=== PATIENT | male | born 1940 | race Caucasian/White ===

== ENCOUNTER 2017-09-24 06:14 | Observation (INO) | payer MEDICARE, OTHER ==
[2017-09-24] MEDS ORDERED: Sodium Chloride 0.9% 10 ML Syringe FLUSH PRN (06:59)
[2017-09-24] MEDS ORDERED: Sodium Chloride 0.9% 2.5 ML Syringe FLUSH PRN (06:59)
--- NOTE | 2017-09-24 07:05 | EDM.PDOC ---
ED HPI GENERAL MEDICAL PROBLEM - General Chief Complaint: Gastrointestinal Problem Stated Complaint: BOWEL PROBLEMS Time Seen by Provider: 09/24/17 06:59 - History of Present Illness INITIAL COMMENTS - FREE TEXT/NARRATIVE: HISTORY AND PHYSICAL: History of present illness: Patient's a 77-year-old white male who presents with a concern of rectal bleeding. 3 episodes that were painless this morning that started at 4 AM he has had smaller episodes in the past with painless hemorrhoids she does not feel that this is similar to that event. There's been no fever chills chest pain shortness breath or other complaints she is not on aspirin or anticoagulants Review of systems: As per history of present illness and below otherwise all systems reviewed and negative. Past medical history: As per history of present illness and as reviewed below otherwise noncontributory. Surgical history: As per history of present illness and as reviewed below otherwise noncontributory. Social history: No reported history of drug or alcohol abuse. Family history: As per history of present illness and as reviewed below otherwise noncontributory. Physical exam: HEENT: Atraumatic, normocephalic, pupils reactive, negative for conjunctival pallor or scleral icterus, mucous membranes moist, throat clear, neck supple, nontender, trachea midline. Lungs: Clear to auscultation, breath sounds equal bilaterally, chest nontender. Heart: S1S2, regular, negative for clicks, rubs, or JVD. Abdomen: Soft, nondistended, nontender. Negative for masses or hepatosplenomegaly. Negative for costovertebral tenderness. Pelvis: Stable nontender. Genitourinary: Deferred. Rectal: Deferred. Extremities: Atraumatic, negative for cords or calf pain. Neurovascular unremarkable. Neuro: Awake, alert, oriented. Cranial nerves II through XII unremarkable. Cerebellum unremarkable. Motor and sensory unremarkable throughout. Exam nonfocal. Diagnostics: CBC CMP UA PT/INR CT abdomen and pelvis Therapeutics: Saline lock Impression: #1 rectal bleeding Definitive disposition and diagnosis as appropriate pending reevaluation and review of above. - Related Data Allergies Allergy/AdvReac Type Severity Reaction Status Date / Time No Known Allergies Allergy Verified 09/24/17 06:42 Home Meds: Home Meds Famotidine 1 tab PO BEDTIME 09/24/17 [History] Fish Oil/[place]-3 Fatty Acids [Fish Oil] 1 tab PO DAILY 09/24/17 [History] Hydrochlorothiazide 1 tab PO DAILY 09/24/17 [History] Metoprolol Succinate [Toprol XL 50mg] 1 tab PO BID 09/24/17 [History] Past Medical History HEENT History: Reports: Impaired Vision, Other (See Below) Other HEENT History: wears glasses Cardiovascular History: Reports: Hypertension Social & Family History - Family History Family Medical History: Noncontributory - Tobacco Use Smoking Status *Q: Never Smoker - Recreational Drug Use Recreational Drug Use: No ED ROS GENERAL - Review of Systems Review Of Systems: ROS reveals no pertinent complaints other than HPI. ED EXAM, GENERAL - Physical Exam Exam: See Below (See dictation) Course - Vital Signs Last Recorded V/S: Last Vital Signs Temp 36.1 C 09/24/17 06:35 Pulse 79 09/24/17 09:00 Resp 20 09/24/17 09:00 BP 126/81 09/24/17 09:00 Pulse Ox 93 L 09/24/17 09:00 - Orders/Labs/Meds Orders: Active Orders 24 hr Category Date Time Status EKG Documentation Completion [RC] STAT Care 09/24/17 06:59 Active Abdomen Pelvis wo Cont [CT] Stat Exams 09/24/17 06:59 Taken UA W/MICROSCOPIC [URIN] Stat Lab 09/24/17 07:40 Ordered Sodium Chloride 0.9% [Saline Flush] Med 09/24/17 06:59 Active 10 ml FLUSH ASDIRECTED PRN Sodium Chloride 0.9% [Saline Flush] Med 09/24/17 06:59 Active 2.5 ml FLUSH ASDIRECTED PRN Saline Lock Insert [OM.PC] Stat Oth 09/24/17 06:59 Ordered Medication Orders Sodium Chloride (Saline Flush) 10 ml FLUSH ASDIRECTED PRN PRN Reason: Keep Vein Open Last Admin: 09/24/17 09:08 Dose: 10 ml Sodium Chloride (Saline Flush) 2.5 ml FLUSH ASDIRECTED PRN PRN Reason: Keep Vein Open Last Admin: 09/24/17 09:08 Dose: 2.5 ml Labs: Laboratory Tests 09/24/17 09/24/17 09/24/17 Range/Units 07:00 07:00 07:00 WBC 7.42 (4.0-11.0) K/uL RBC 4.87 (4.50-5.90) M/uL Hgb 15.7 (13.0-17.0) g/dL Hct 46.5 (38.0-50.0) % MCV 95.5 (80.0-98.0) fL MCH 32.2 H (27.0-32.0) pg MCHC 33.8 (31.0-37.0) g/dL RDW Std Deviation 52.3 (28.0-62.0) fl RDW Coeff of Mary 15 (11.0-15.0) % Plt Count 134 L (150-400) K/uL MPV 9.10 (7.40-12.00) fL Neut % (Auto) 69.2 (48.0-80.0) % Lymph % (Auto) 18.9 (16.0-40.0) % Charlton % (Auto) 10.2 (0.0-15.0) % Eos % (Auto) 1.3 (0.0-7.0) % Baso % (Auto) 0.4 (0.0-1.5) % Neut # (Auto) 5.1 (1.4-5.7) K/uL Lymph # (Auto) 1.4 (0.6-2.4) K/uL Charlton # (Auto) 0.8 (0.0-0.8) K/uL Eos # (Auto) 0.1 (0.0-0.7) K/uL Baso # (Auto) 0.0 (0.0-0.1) K/uL Nucleated RBC % 0.0 /100WBC Nucleated RBCs # 0 K/uL INR 1.08 Sodium 140 (136-148) mmol/L Potassium 4.0 (3.5-5.1) mmol/L Chloride 106 (98-107) mmol/L Carbon Dioxide 25.2 (21.0-32.0) mmol/L BUN 25 H (7.0-18.0) mg/dL Creatinine 1.6 H (0.8-1.3) mg/dL Est Cr Clr Drug Dosing 41.09 mL/min Estimated GFR (MDRD) 41.9 ml/min Glucose 134 H (74-106) mg/dL Calcium 9.1 (8.5-10.1) mg/dL Total Bilirubin 0.5 (0.2-1.0) mg/dL AST 28 (15-37) IU/L ALT 26 (14-63) IU/L Alkaline Phosphatase 54 (46-116) U/L Total Protein 7.7 (6.4-8.2) g/dL Albumin 3.8 (3.4-5.0) g/dL Globulin 3.9 H (2.0-3.5) g/dL Albumin/Globulin Ratio 1.0 L (1.3-2.8) Urine Color Urine Appearance Urine pH (5.0-8.0) Ur Specific [place] (1.001-1.035) Urine Protein (NEGATIVE) mg/dL Urine Glucose (UA) (NEGATIVE) mg/dL Urine Ketones (NEGATIVE) mg/dL Urine Occult Blood (NEGATIVE) Urine Nitrite (NEGATIVE) Urine Bilirubin (NEGATIVE) Urine Urobilinogen (<2.0) EU/dL Ur Leukocyte Esterase (NEGATIVE) Urine RBC (0-2/HPF) Urine WBC (0-5/HPF) Ur Epithelial Cells (NONE-FEW) Amorphous Sediment (NEGATIVE) Urine Bacteria (NEGATIVE) 09/24/17 Range/Units 07:40 WBC (4.0-11.0) K/uL RBC (4.50-5.90) M/uL Hgb (13.0-17.0) g/dL Hct (38.0-50.0) % MCV (80.0-98.0) fL MCH (27.0-32.0) pg MCHC (31.0-37.0) g/dL RDW Std Deviation (28.0-62.0) fl RDW Coeff of Mary (11.0-15.0) % Plt Count (150-400) K/uL MPV (7.40-12.00) fL Neut % (Auto) (48.0-80.0) % Lymph % (Auto) (16.0-40.0) % Charl[place] % (Auto) (0.0-15.0) % Eos % (Auto) (0.0-7.0) % Baso % (Auto) (0.0-1.5) % Neut # (Auto) (1.4-5.7) K/uL Lymph # (Auto) (0.6-2.4) K/uL [place] # (Auto) (0.0-0.8) K/uL Eos # (Auto) (0.0-0.7) K/uL Baso # (Auto) (0.0-0.1) K/uL Nucleated RBC % /100WBC Nucleated RBCs # K/uL INR Sodium (136-148) mmol/L Potassium (3.5-5.1) mmol/L Chloride (98-107) mmol/L Carbon Dioxide (21.0-32.0) mmol/L BUN (7.0-18.0) mg/dL Creatinine (0.8-1.3) mg/dL Est Cr Clr Drug Dosing mL/min Estimated GFR (MDRD) ml/min Glucose (74-106) mg/dL Calcium (8.5-10.1) mg/dL Total Bilirubin (0.2-1.0) mg/dL AST (15-37) IU/L ALT (14-63) IU/L Alkaline Phosphatase (46-116) U/L Total Protein (6.4-8.2) g/dL Albumin (3.4-5.0) g/dL Globulin (2.0-3.5) g/dL Albumin/Globulin Ratio (1.3-2.8) Urine Color YELLOW Urine Appearance CLEAR Urine pH 5.5 (5.0-8.0) Ur Specific [place] 1.020 (1.001-1.035) Urine Protein NEGATIVE (NEGATIVE) mg/dL Urine Glucose (UA) NEGATIVE (NEGATIVE) mg/dL Urine Ketones NEGATIVE (NEGATIVE) mg/dL Urine Occult Blood TRACE-INTACT (NEGATIVE) Urine Nitrite NEGATIVE (NEGATIVE) Urine Bilirubin NEGATIVE (NEGATIVE) Urine Urobilinogen 0.2 (<2.0) EU/dL Ur Leukocyte Esterase NEGATIVE (NEGATIVE) Urine RBC NONE SEEN (0-2/HPF) Urine WBC 0-1 (0-5/HPF) Ur Epithelial Cells RARE (NONE-FEW) Amorphous Sediment RARE (NEGATIVE) Urine Bacteria RARE (NEGATIVE) Meds: Medications Generic Name Dose Route Start Last Admin Trade Name Freq PRN Reason Stop Dose Admin Sodium Chloride 10 ml 09/24/17 06:59 09/24/17 09:08 Saline Flush FLUSH 10 ml ASDIRECTED PRN Administration Keep Vein Open Sodium Chloride 2.5 ml 09/24/17 06:59 09/24/17 09:08 Saline Flush FLUSH 2.5 ml ASDIRECTED PRN Administration Keep Vein Open Discontinued Medications Generic Name Dose Route Start Last Admin Trade Name Fernando PRN Reason Stop Dose Admin Pantoprazole Sodium 40 mg 09/24/17 08:54 09/24/17 09:08 Protonix Iv IVPUSH 09/24/17 08:55 40 mg NOW ONE Administration Departure - Departure Time of Disposition: 09:13 Disposition: Refer to Observation Condition: Good Clinical Impression: Diverticulosis - Discharge Information Referrals: Luis Ochoa MD [Primary Care Provider] - Forms: ED Department Discharge - My Orders Last 24 Hours: My Active Orders 09/24/17 06:59 EKG Documentation Completion [RC] STAT Abdomen Pelvis wo Cont [CT] Stat Sodium Chloride 0.9% [Saline Flush] 10 ml FLUSH ASDIRECTED PRN Sodium Chloride 0.9% [Saline Flush] 2.5 ml FLUSH ASDIRECTED PRN Saline Lock Insert [OM.PC] Stat 09/24/17 07:40 UA W/MICROSCOPIC [URIN] Stat - Assessment/Plan Last 24 Hours: My Active Orders 09/24/17 06:59 EKG Documentation Completion [RC] STAT Abdomen Pelvis wo Cont [CT] Stat Sodium Chloride 0.9% [Saline Flush] 10 ml FLUSH ASDIRECTED PRN Sodium Chloride 0.9% [Saline Flush] 2.5 ml FLUSH ASDIRECTED PRN Saline Lock Insert [OM.PC] Stat 09/24/17 07:40 UA W/MICROSCOPIC [URIN] Stat
[2017-09-24] MEDS ORDERED: Pantoprazole 40 MG Vial IVPUSH ONE (08:54)
[2017-09-24] MEDS ORDERED: Morphine 4 MG/ML Syringe IVPUSH PRN (11:30)
[2017-09-24] MEDS ORDERED: Ondansetron 4 MG/2 ML SDV IVPUSH PRN (11:31)
[2017-09-24] MEDS: Lactated Ringers 1,000 ML IV SCH ×2 (11:59→21:37)
[2017-09-24] MEDS: Ciprofloxacin in D5W 400 MG in Premix Bag 1 BAG IV SCH ×4 (12:00→23:12)
--- NOTE | 2017-09-24 12:58 | PCM.HP ---
H&P History of Present Illness - General Date of Service: 09/24/17 Admit Problem/Dx: Admission Diagnosis/Problem Admission Diagnosis/Problem Diverticulosis of intestine Source of Information: Patient History Limitations: Reports: No Limitations - History of Present Illness Initial Comments - Free Text/Narative: This 77 year old male with pmh of HTN, hypercholesterolemia presented to the ED this with 3 episodes of bloody bowel movements this morning. He reports he woke up around 4 am, which is normal to have a BM. Noticed monae blood in this stool. He then had to have another stool around 4:30 which was monae blood present and then again at 5:00, which was darker in appearance, more maroon. He denied any abdominal pain or rectal pain. He otherwise has been feeling well recently with no abdominal pain, chest pain, SOB or palpitations. He reports some heartburn. He was switched to famotidine for heartburn, from Prilosec. He made this switch a few days ago and has noticed an increase in heartburn. He also reports using Aleve 1-2 times daily for chronic back pain. He reports eating "[place] meat", raw ground beef, that was not fresh a couple days ago, no body else ate the meat but him. He denies bowel habit changes recently. He has had bloody in his stool previously, but not recently and thought it was related to hemorrhoids. He had a colonoscopy 8-[address] Reilly, in which he reports was normal. He has never had an EGD. No family history of colon cancer. He does report his mother had history of diverticulosis, but he prior to this never known he had it. He denies current tobacco use, quit in the 60's, rare alcohol use and no recreational drug use. In the ED no leukocytosis noted, hgb 15.7. BUN 25 and Cr 1.6. UA was negative. Abd/pelvis CT was obtained which revealed "sigmoid diverticulosis. Candy sigmoid fat stranding. The appearance is likely related to mild sigmoid diverticulitis without abscess formation or bowel obstruction. No free air. Scattered diverticula elsewhere within the colon". VS were stable. He was treated with Protonix in the ED. He was admitted observation for sigmoid diverticulitis and rectal bleeding. PCP, Dr Ochoa. - Related Data Allergies/Adverse Reactions: Allergies Allergy/AdvReac Type Severity Reaction Status Date / Time No Known Allergies Allergy Verified 09/24/17 06:42 Home Medications: Home Meds Famotidine 40 mg PO BEDTIME 09/24/17 [History] Fish Oil/[place]-3 Fatty Acids [Fish Oil] 1,200 mg PO DAILY 09/24/17 [History] Fluticasone Propionate 1 puff NS DAILY PRN 09/24/17 [History] Hydrochlorothiazide 12.5 mg PO DAILY 09/24/17 [History] Metoprolol Tartrate 50 mg PO BID 09/24/17 [History] Omeprazole 20 mg PO ACBREAKFAST 09/24/17 [History] Past Medical History HEENT History: Reports: Impaired Vision, Other (See Below) Other HEENT History: wears glasses Cardiovascular History: Reports: High Cholesterol, Hypertension. Denies: Afib, Blood Clots/VTE/DVT, MA Respiratory History: Reports: None. 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 needs to cut meat small and chew food thoroughly) Genitourinary History: Reports: None. Denies: Chronic Renal Insuffiency Musculoskeletal History: Reports: None Neurological History: Reports: None. Denies: CVA, Migraines, TIA Psychiatric History: Reports: None Endocrine/Metabolic History: Denies: Diabetes, Type II Hematologic History: Reports: None Oncologic (Cancer) History: Reports: None - Past Surgical History HEENT Surgical History: Reports: Tonsillectomy (when he was a child) Other Neurological Surgeries/Procedures: Pilio, with mild dysphagia. Social & Family History - Family History GI: Reports: Diverticulosis Oncologic: Denies: Colon - Tobacco Use Smoking Status *Q: Former Smoker Used Tobacco, but Quit: Yes Month/Year Tobacco Last Used: 1964 Second Hand Smoke Exposure: No - Caffeine Use Caffeine Use: Reports: Coffee - Alcohol Use Alcohol Use History: No Alcohol Use Frequency: Socially - Recreational Drug Use Recreational Drug Use: No - Living Situation & Occupation Living situation: Reports: Occupation: Retired H&P Review of Systems - Review of Systems: Review Of Systems: See Below General: Reports: No Symptoms. Denies: Fever, Chills, Malaise, Weakness, Fatigue HEENT: Reports: No Symptoms. Denies: Headaches, Sinus Congestion, Sore Throat, Visual Changes Pulmonary: Reports: No Symptoms. Denies: Shortness of Breath, Cough, Sputum Cardiovascular: Reports: No Symptoms. Denies: Chest Pain, Edema Gastrointestinal: Reports: Black Stool, Bloody Stool, Flatus. Denies: Abdominal Pain, Decreased Appetite, Distension, Hematemesis, Nausea, Vomiting Genitourinary: Reports: No Symptoms. Denies: Dysuria, Frequency, Burning, Pain Musculoskeletal: Reports: No Symptoms. Denies: Neck Pain Skin: Reports: No Symptoms Psychiatric: Reports: No Symptoms Neurological: Reports: No Symptoms Hematologic/Lymphatic: Reports: No Symptoms Immunologic: Reports: No Symptoms Exam - Exam Exam: See Below - Vital Signs Vital Signs: Last Vital Signs Temp 97 F 09/24/17 11:51 Pulse 80 09/24/17 11:51 Resp 18 09/24/17 11:51 BP 132/82 09/24/17 11:51 Pulse Ox 92 L 09/24/17 11:51 Weight: 90 kg - Exam General: Alert, Oriented, Cooperative HEENT: Conjunctiva Clear, Mucosa Moist & [place], Posterior Pharynx Clear, Pupils Reactive Neck: Supple, Trachea Midline, 2 Lungs: Clear to Auscultation, Normal Respiratory Effort Cardiovascular: Regular Rate, Regular Rhythm GI/Abdominal Exam: Normal Bowel Sounds, Soft, Non-Tender, No Organomegaly, No Distention, No Abnormal Bruit, No Mass (Male) Exam: Deferred Rectal (Males) Exam: Normal Exam, Normal Rectal Tone, Bloody Stool, Heme + Stool. No: Hemorrhoids, Mass, Tenderness Back Exam: Normal Inspection, Full Range of Motion, NT Extremities: Normal Inspection, Normal Range of Motion, Non-Tender, No Pedal Edema, Normal Capillary Refill Neurological: Cranial Nerves Intact, Reflexes Equal Bilateral Neuro Extensive - Mental Status: Alert, Oriented x3, Normal Mood/Affect, Normal Cognition Neuro Extensive - Motor, Sensory, Reflexes: CN II-XII Intact, Normal Gait, Normal Reflexes Psychiatric: Alert, Normal Affect, Normal Mood - Patient Data Lab Results Last 24 hrs: Laboratory Results - last 24 hr 09/24/17 09/24/17 09/24/17 Range/Units 07:00 07:00 07:00 WBC 7.42 (4.0-11.0) K/uL RBC 4.87 (4.50-5.90) M/uL Hgb 15.7 (13.0-17.0) g/dL Hct 46.5 (38.0-50.0) % MCV 95.5 (80.0-98.0) fL MCH 32.2 H (27.0-32.0) pg MCHC 33.8 (31.0-37.0) g/dL RDW Std Deviation 52.3 (28.0-62.0) fl RDW Coeff of Mary 15 (11.0-15.0) % Plt Count 134 L (150-400) K/uL MPV 9.10 (7.40-12.00) fL Neut % (Auto) 69.2 (48.0-80.0) % Lymph % (Auto) 18.9 (16.0-40.0) % [place] % (Auto) 10.2 (0.0-15.0) % Eos % (Auto) 1.3 (0.0-7.0) % Baso % (Auto) 0.4 (0.0-1.5) % Neut # (Auto) 5.1 (1.4-5.7) K/uL Lymph # (Auto) 1.4 (0.6-2.4) K/uL [place] # (Auto) 0.8 (0.0-0.8) K/uL Eos # (Auto) 0.1 (0.0-0.7) K/uL Baso # (Auto) 0.0 (0.0-0.1) K/uL Nucleated RBC % 0.0 /100WBC Nucleated RBCs # 0 K/uL INR 1.08 Sodium 140 (136-148) mmol/L Potassium 4.0 (3.5-5.1) mmol/L Chloride 106 (98-107) mmol/L Carbon Dioxide 25.2 (21.0-32.0) mmol/L BUN 25 H (7.0-18.0) mg/dL Creatinine 1.6 H (0.8-1.3) mg/dL Est Cr Clr Drug Dosing 41.09 mL/min Estimated GFR (MDRD) 41.9 ml/min Glucose 134 H (74-106) mg/dL Calcium 9.1 (8.5-10.1) mg/dL Total Bilirubin 0.5 (0.2-1.0) mg/dL AST 28 (15-37) IU/L ALT 26 (14-63) IU/L Alkaline Phosphatase 54 (46-116) U/L Total Protein 7.7 (6.4-8.2) g/dL Albumin 3.8 (3.4-5.0) g/dL Globulin 3.9 H (2.0-3.5) g/dL Albumin/Globulin Ratio 1.0 L (1.3-2.8) Urine Color Urine Appearance Urine pH (5.0-8.0) Ur Specific [place] (1.001-1.035) Urine Protein (NEGATIVE) mg/dL Urine Glucose (UA) (NEGATIVE) mg/dL Urine Ketones (NEGATIVE) mg/dL Urine Occult Blood (NEGATIVE) Urine Nitrite (NEGATIVE) Urine Bilirubin (NEGATIVE) Urine Urobilinogen (<2.0) EU/dL Ur Leukocyte Esterase (NEGATIVE) Urine RBC (0-2/HPF) Urine WBC (0-5/HPF) Ur Epithelial Cells (NONE-FEW) Amorphous Sediment (NEGATIVE) Urine Bacteria (NEGATIVE) 09/24/17 Range/Units 07:40 WBC (4.0-11.0) K/uL RBC (4.50-5.90) M/uL Hgb (13.0-17.0) g/dL Hct (38.0-50.0) % MCV (80.0-98.0) fL MCH (27.0-32.0) pg MCHC (31.0-37.0) g/dL RDW Std Deviation (28.0-62.0) fl RDW Coeff of Mary (11.0-15.0) % Plt Count (150-400) K/uL MPV (7.40-12.00) fL Neut % (Auto) (48.0-80.0) % Lymph % (Auto) (16.0-40.0) % [place] % (Auto) (0.0-15.0) % Eos % (Auto) (0.0-7.0) % Baso % (Auto) (0.0-1.5) % Neut # (Auto) (1.4-5.7) K/uL Lymph # (Auto) (0.6-2.4) K/uL [place] # (Auto) (0.0-0.8) K/uL Eos # (Auto) (0.0-0.7) K/uL Baso # (Auto) (0.0-0.1) K/uL Nucleated RBC % /100WBC Nucleated RBCs # K/uL INR Sodium (136-148) mmol/L Potassium (3.5-5.1) mmol/L Chloride (98-107) mmol/L Carbon Dioxide (21.0-32.0) mmol/L BUN (7.0-18.0) mg/dL Creatinine (0.8-1.3) mg/dL Est Cr Clr Drug Dosing mL/min Estimated GFR (MDRD) ml/min Glucose (74-106) mg/dL Calcium (8.5-10.1) mg/dL Total Bilirubin (0.2-1.0) mg/dL AST (15-37) IU/L ALT (14-63) IU/L Alkaline Phosphatase (46-116) U/L Total Protein (6.4-8.2) g/dL Albumin (3.4-5.0) g/dL Globulin (2.0-3.5) g/dL Albumin/Globulin Ratio (1.3-2.8) Urine Color YELLOW Urine Appearance CLEAR Urine pH 5.5 (5.0-8.0) Ur Specific [place] 1.020 (1.001-1.035) Urine Protein NEGATIVE (NEGATIVE) mg/dL Urine Glucose (UA) NEGATIVE (NEGATIVE) mg/dL Urine Ketones NEGATIVE (NEGATIVE) mg/dL Urine Occult Blood TRACE-INTACT (NEGATIVE) Urine Nitrite NEGATIVE (NEGATIVE) Urine Bilirubin NEGATIVE (NEGATIVE) Urine Urobilinogen 0.2 (<2.0) EU/dL Ur Leukocyte Esterase NEGATIVE (NEGATIVE) Urine RBC NONE SEEN (0-2/HPF) Urine WBC 0-1 (0-5/HPF) Ur Epithelial Cells RARE (NONE-FEW) Amorphous Sediment RARE (NEGATIVE) Urine Bacteria RARE (NEGATIVE) Result Diagrams: 09/24/17 07:00 09/24/17 07:00 *Q Meaningful Use (ADM) - VTE *Q VTE Pharmacological Contraindications *Q: Risk of Bleeding - Problem List (1) Sigmoid diverticulitis SNOMED Code(s): 502467953 ICD Code: K57.32 - DVTRCLI OF LG INT W/O PERFORATION OR ABSCESS W/O BLEEDING Status: Acute Current Visit: Yes (2) Rectal bleeding SNOMED Code(s): 71729016 ICD Code: K62.5 - HEMORRHAGE OF ANUS AND RECTUM Status: Acute Current Visit: Yes (3) Upper GI bleeding SNOMED Code(s): 50100864 ICD Code: K92.2 - GASTROINTESTINAL HEMORRHAGE, UNSPECIFIED Status: Suspected Current Visit: Yes (4) HTN (hypertension) SNOMED Code(s): 79514053 ICD Code: I10 - ESSENTIAL (PRIMARY) HYPERTENSION Status: Chronic Current Visit: Yes Qualifiers: Hypertension type: essential hypertension Qualified Code(s): I10 - Essential (primary) hypertension (5) Hypercholesteremia SNOMED Code(s): 59443353 ICD Code: E78.00 - PURE HYPERCHOLESTEROLEMIA, UNSPECIFIED Status: Chronic Current Visit: Yes (6) GERD (gastroesophageal reflux disease) SNOMED Code(s): 324946989 ICD Code: K21.9 - GASTRO-ESOPHAGEAL REFLUX DISEASE WITHOUT ESOPHAGITIS Status: Chronic Current Visit: Yes Qualifiers: Esophagitis presence: esophagitis presence not specified Qualified Code(s) : K21.9 - Gastro-esophageal reflux disease without esophagitis (7) History of poliomyelitis SNOMED Code(s): 734519549 ICD Code: Z86.12 - PERSONAL HISTORY OF POLIOMYELITIS Status: Chronic Current Visit: Yes Problem List Initiated/Reviewed/Updated: Yes Orders Last 24hrs: Active Orders 24 hr Category Date Time Status Patient Status [ADT] Stat ADT 09/24/17 09:14 Active Fecal Occult Blood Collection [RC] ASDIRECTED Care 09/24/17 11:31 Active Intake and Output [RC] Q12H Care 09/24/17 11:31 Active Oxygen Therapy [RC] PRN Care 09/24/17 11:30 Active Up ad Britni [RC] ASDIRECTED Care 09/24/17 11:30 Active VTE/DVT Education [RC] PER UNIT ROUTINE Care 09/24/17 11:30 Active Vital Signs [RC] Q4H Care 09/24/17 11:30 Active Clear Liquid Diet [DIET] Diet 09/24/17 Lunch Active Abdomen Pelvis wo Cont [CT] Stat Exams 09/24/17 06:59 Taken BASIC METABOLIC PANEL,BMP [CHEM] AM Lab 09/25/17 05:11 Ordered BASIC METABOLIC PANEL,BMP [CHEM] AM Lab 09/26/17 05:11 Ordered CBC WITH AUTO DIFF [HEME] AM Lab 09/25/17 05:11 Ordered CBC WITH AUTO DIFF [HEME] AM Lab 09/26/17 05:11 Ordered CDIFF TOX A+B [OP] Routine Lab 09/24/17 12:43 Ordered CULTURE STOOL + CAMPY+SHIGATOX [RM] Routine Lab 09/24/17 12:43 Ordered HELICOBACTER PYLORI AB IGG [CHEM] Routine Lab 09/24/17 12:43 Ordered OCCULT BLOOD DIAGNOSTIC [OP] Routine Lab 09/24/17 11:31 Ordered UA W/MICROSCOPIC [URIN] Stat Lab 09/24/17 07:40 Ordered WBC, STOOL [OP] Routine Lab 09/24/17 12:43 Ordered Ciprofloxacin in D5W [Cipro in D5W 400 MG/200 ML] 400 Med 09/24/17 11:45 Active mg Premix Bag 1 bag IV Q12H Hydrochlorothiazide [Hydrochlorothiazide] Med 09/24/17 12:54 Ordered 1 tab PO DAILY Lactated Ringers [Ringers, Lactated] 1,000 ml Med 09/24/17 11:30 Active IV ASDIRECTED Metoprolol Succinate [Toprol XL] Med 09/24/17 12:55 Ordered DOSE mg PO BID Morphine Med 09/24/17 11:30 Active 2 mg IVPUSH Q2H PRN Ondansetron [Zofran] Med 09/24/17 11:31 Active 4 mg IVPUSH Q4H PRN Pantoprazole [ProTONIX IV] Med 09/24/17 21:00 Active 40 mg IV Q12HR Sodium Chloride 0.9% [Saline Flush] Med 09/24/17 06:59 Active 10 ml FLUSH ASDIRECTED PRN Sodium Chloride 0.9% [Saline Flush] Med 09/24/17 06:59 Active 2.5 ml FLUSH ASDIRECTED PRN metroNIDAZOLE/Normal Saline [Flagyl 500 MG in NS 100 ML Med 09/24/17 12:00 Active ] 500 mg Premix Bag 1 bag IV QID Saline Lock Insert [OM.PC] Stat Oth 09/24/17 06:59 Ordered Sequential Compression Device [OM.PC] Per Unit Routine Oth 09/24/17 11:31 Ordered Resuscitation Status Routine Resus Stat 09/24/17 11:30 Ordered Medication Orders Ciprofloxacin/Dextrose 400 mg/ (Premix) 200 mls @ 200 mls/hr IV Q12H [facility] Last Admin: 09/24/17 12:00 Dose: 200 mls/hr Lactated Ringer's (Ringers, Lactated) 1,000 mls @ 100 mls/hr IV ASDIRECTED [facility] Last Admin: 09/24/17 11:59 Dose: 100 mls/hr Metronidazole 500 mg/ Premix 100 mls @ 100 mls/hr IV QID [facility] Metoprolol Succinate (Toprol Xl) mg PO BID [facility] Morphine Sulfate (Morphine) 2 mg IVPUSH Q2H PRN PRN Reason: Pain (severe 7-10) Non-Formulary Medication (Hydrochlorothiazide [Hydrochlorothiazide]) 1 tab PO DAILY [facility] Ondansetron HCl (Zofran) 4 mg IVPUSH Q4H PRN PRN Reason: Nausea Pantoprazole Sodium (Protonix Iv) 40 mg IV Q12HR [facility] Sodium Chloride (Saline Flush) 10 ml FLUSH ASDIRECTED PRN PRN Reason: Keep Vein Open Last Admin: 09/24/17 09:08 Dose: 10 ml Sodium Chloride (Saline Flush) 2.5 ml FLUSH ASDIRECTED PRN PRN Reason: Keep Vein Open Last Admin: 09/24/17 09:08 Dose: 2.5 ml Assessment/Plan Comment:: This 77 alexa old male admitted with cute sigmoid diverticulitis with rectal bleeding 1. Acute sigmoid diverticulitis: Hgb stable. One black stool since arrival to hospital. Rectal exam obtained, heme positive stools. Stool on visual exam is maroon with some monae blood. No rectal mass, external or internal hemorrhoids. Will obtain stool cultures due to eating raw meat. Will treat with IVFs, Ciprofloxacin and Flagyl. Monitor bleeding and hgb. Spoke with Dr Fish, general surgeon, barium enema NOT recommended when acute diverticulitis is present. He recommends patient follow up as outpatient for colonoscopy and EGD or if he continues to bleed re-consult. Since Ray has no pain, will allow CL diet and monitor for now. 2. Suspected Upper GI bleed: Increase in heartburn, daily use of NSAIDs. Discouraged daily use of Aleve. Will continue Protonix IV Q12hrs and add Carafate. 3. Elevated BUN/Cr: could be due to acute bleeding, Will obtain most recent lab work from Dr Ochoa's clinic to compare. Will give gentle IVFs. Monitor in am. Ray denies hx of CKD or renal disease. 4. HTN: Stable, Will continue HCT and Metoprolol. VTE prophylaxis: SCDs and ambulation only due to acute GI bleeding. Dispo: 1-3 days pending improvement. I did speak with Dr Ochoa, PCP, he is aware of admission and treatment plan along with general surgery follow up for EGD/colonoscopy.
[2017-09-24] MEDS: metroNIDAZOLE/Normal Saline 500 MG in Premix Bag 1 BAG IV SCH ×2 (13:09→17:29)
[2017-09-24] MEDS: Metoprolol Tartrate 50 MG Tab PO SCH ×2 (13:10→21:34)
[2017-09-24] MEDS: Hydrochlorothiazide 12.5 MG Cap PO SCH (13:10)
--- NOTE | 2017-09-24 15:37 | CT ---
EXAM DATE: 09/24/17 PATIENT'S AGE: 77 Patient: CASEY KENNEDY Facility: [place], [place] Site . Site : 1940 Study: CT Abdomen/Pelvis [id number]/23/2018 8:21:46 AM Ordering Physician: Hugo Velez Final Report: INDICATION: 77 year-old male. Bloody stool. TECHNIQUE: Noncontrast CT of the abdomen and pelvis. COMPARISON: None. FINDINGS: Clear included lung bases. Coronary artery calcifications. The unenhanced liver , spleen, pancreas, partly contracted gallbladder, both adrenal glands, and kidneys are within normal limits except for bilateral renal cysts including a large cyst arising from the posteroinferior left kidney measuring 7.3 x 7.3 cm. No renal stone. Vascular calcification within a mildly ectatic abdominal aorta with a distal aorta measuring up to 2.6 cm. Tortuous and ectatic iliac arteries containing vascular calcification. Normal appendix. Sigmoid diverticulosis. Candy sigmoid fat stranding. The appearance is likely related to mild sigmoid diverticulitis without abscess formation or bowel obstruction. No free air. Scattered diverticula elsewhere within the colon. The prostate and seminal vesicles as well as the urinary bladder are within normal limits. Fat containing inguinal hernias, small on the right and small to moderate on the left. Multilevel degenerative disc disease of the lumbar spine. IMPRESSION: 1. CT changes most compatible with mild sigmoid diverticulitis. 2. Colonoscopy is recommended when the clinical picture allows. 3. Scattered diverticula elsewhere throughout the colon. 4. Multiple renal cysts. Ectatic abdominal aorta and iliac arteries containing dense vascular calcifications. Please note that all CT scans at this facility use dose modulation, iterative reconstruction, and/or weight-based dosing when appropriate to reduce radiation dose to as low as reasonably achievable. Dictated by Rafi Alexandra MD @ Sep 24 2017 8:27AM (Electronic Signature) Report Signed by Proxy. DAYDAY
[2017-09-24] MEDS: Sucralfate Suspension 1 GM/10 ML Cup PO SCH ×2 (16:28→21:34)
[2017-09-24] MEDS: Pantoprazole 40 MG Vial IV SCH (21:33)
[2017-09-25] MEDS: metroNIDAZOLE/Normal Saline 500 MG in Premix Bag 1 BAG IV SCH ×4 (00:20→17:50)
[2017-09-25] MEDS: Sucralfate Suspension 1 GM/10 ML Cup PO SCH ×4 (06:44→20:32)
--- NOTE | 2017-09-25 08:59 | PCM.DCSUM1 ---
Discharge Summary - Discharge Data Discharge Date: 09/25/17 Discharge Disposition: Home, Self-Care 01 Condition: Good - Discharge Diagnosis/Problem(s) (1) Sigmoid diverticulitis SNOMED Code(s): 167803076 ICD Code: K57.32 - DVTRCLI OF LG INT W/O PERFORATION OR ABSCESS W/O BLEEDING Status: Acute Current Visit: Yes (2) Rectal bleeding SNOMED Code(s): 28133179 ICD Code: K62.5 - HEMORRHAGE OF ANUS AND RECTUM Status: Acute Current Visit: Yes (3) Upper GI bleeding SNOMED Code(s): 13578939 ICD Code: K92.2 - GASTROINTESTINAL HEMORRHAGE, UNSPECIFIED Status: Suspected Current Visit: Yes (4) HTN (hypertension) SNOMED Code(s): 37330945 ICD Code: I10 - ESSENTIAL (PRIMARY) HYPERTENSION Status: Chronic Current Visit: Yes Qualifiers: Hypertension type: essential hypertension Qualified Code(s): I10 - Essential (primary) hypertension (5) Hypercholesteremia SNOMED Code(s): 08735770 ICD Code: E78.00 - PURE HYPERCHOLESTEROLEMIA, UNSPECIFIED Status: Chronic Current Visit: Yes (6) GERD (gastroesophageal reflux disease) SNOMED Code(s): 741621809 ICD Code: K21.9 - GASTRO-ESOPHAGEAL REFLUX DISEASE WITHOUT ESOPHAGITIS Status: Chronic Current Visit: Yes Qualifiers: Esophagitis presence: esophagitis presence not specified Qualified Code(s) : K21.9 - Gastro-esophageal reflux disease without esophagitis (7) History of poliomyelitis SNOMED Code(s): 249281413 ICD Code: Z86.12 - PERSONAL HISTORY OF POLIOMYELITIS Status: Chronic Current Visit: Yes - Patient Instructions Diet: GI Soft/Low Residue/Low Fiber Activity: As Tolerated, No Strenuous Activities Driving: May Drive Today Showering/Bathing: May Shower Notify Provider of: Fever, Increased Pain, Swelling and Redness, Drainage, Nausea and/or Vomiting Other/Special Instructions: Decrease acidic food intake and NO NSAIDs (Aleve, Motrin, Advil, Ibuprofen) - Discharge Plan Prescriptions/Med Rec: Ciprofloxacin HCl [Cipro] 500 mg PO BID #18 tablet metroNIDAZOLE [Flagyl] 500 mg PO TID #27 tablet Pantoprazole Sodium [Protonix] 40 mg PO BID #60 tablet. Sucralfate [Carafate] 1 gm PO QIDPCANDBED #120 tablet Home Medications: Home Meds Fish Oil/[place]-3 Fatty Acids [Fish Oil] 1,200 mg PO DAILY 09/24/17 [History] Fluticasone Propionate 1 puff NS DAILY 09/24/17 [History] Hydrochlorothiazide 12.5 mg PO DAILY 09/24/17 [History] Metoprolol Tartrate 50 mg PO BID 09/24/17 [History] Ciprofloxacin HCl [Cipro] 500 mg PO BID #18 tablet 09/25/17 [Rx] Pantoprazole Sodium [Protonix] 40 mg PO BID #60 tablet. 09/25/17 [Rx] Sucralfate [Carafate] 1 gm PO QIDPCANDBED #120 tablet 09/25/17 [Rx] metroNIDAZOLE [Flagyl] 500 mg PO TID #27 tablet 09/25/17 [Rx] Referrals: Luis Ochoa MD [Primary Care Provider] - (follow up 1 week) Ronit Hightower MD [Physician] - (follow up 3-4 weeks) - Patient Data Vitals - Most Recent: Last Vital Signs Temp 97.9 F 09/25/17 04:00 Pulse 62 09/25/17 04:00 Resp 19 09/25/17 04:00 BP 116/66 09/25/17 04:00 Pulse Ox 96 09/25/17 04:00 Weight - Most Recent: 90 kg I&O - Last 24 hours: Intake & Output 09/24/17 09/25/17 09/25/17 22:59 06:59 14:59 Intake Total 715 1652 Output Total 515 1300 Balance 200 352 Lab Results - Last 24 hrs: Laboratory Results - last 24 hr 09/24/17 09/25/17 09/25/17 Range/Units 07:00 04:48 04:48 WBC 7.26 (4.0-11.0) K/uL RBC 4.41 L (4.50-5.90) M/uL Hgb 14.3 (13.0-17.0) g/dL Hct 42.3 (38.0-50.0) % MCV 95.9 (80.0-98.0) fL MCH 32.4 H (27.0-32.0) pg MCHC 33.8 (31.0-37.0) g/dL RDW Std Deviation 53.3 (28.0-62.0) fl RDW Coeff of Mary 15 (11.0-15.0) % Plt Count 134 L (150-400) K/uL MPV 8.90 (7.40-12.00) fL Neut % (Auto) 62.6 (48.0-80.0) % Lymph % (Auto) 25.1 (16.0-40.0) % [place] % (Auto) 9.9 (0.0-15.0) % Eos % (Auto) 2.1 (0.0-7.0) % Baso % (Auto) 0.3 (0.0-1.5) % Neut # (Auto) 4.6 (1.4-5.7) K/uL Lymph # (Auto) 1.8 (0.6-2.4) K/uL [place] # (Auto) 0.7 (0.0-0.8) K/uL Eos # (Auto) 0.2 (0.0-0.7) K/uL Baso # (Auto) 0.0 (0.0-0.1) K/uL Nucleated RBC % 0.0 /100WBC Nucleated RBCs # 0 K/uL Sodium 140 (136-148) mmol/L Potassium 4.1 (3.5-5.1) mmol/L Chloride 106 (98-107) mmol/L Carbon Dioxide 28.9 (21.0-32.0) mmol/L BUN 17 (7.0-18.0) mg/dL Creatinine 1.5 H (0.8-1.3) mg/dL Est Cr Clr Drug Dosing 43.83 mL/min Estimated GFR (MDRD) 45.1 ml/min Glucose 115 H (74-106) mg/dL Calcium 8.6 (8.5-10.1) mg/dL H. pylori IgG Antibody NEGATIVE (NEG) ARSH Results - Last 24 hrs: Microbiology 09/25/17 00:30 Clostridium difficile Toxin A & B - Final Stool / Feces Negative for C.Diff Toxin/AG Stool for WBCs - Final POSITIVE FOR WBC'S 09/25/17 00:30 Campylobacter Antigen Assay - Final Stool / Feces NEGATIVE CAMPYLOBACTER AG 09/24/17 12:30 Stool Occult Blood (ARSH) - Final Stool / Feces POSITIVE OCCULT BLOOD Med Orders - Current: Current Medications Fluticasone Propionate (Flonase) 16 gm NASBOTH DAILY [facility] Hydrochlorothiazide (Hydrochlorothiazide) 12.5 mg PO DAILY [facility] Last Admin: 09/24/17 13:10 Dose: 12.5 mg Ciprofloxacin/Dextrose 400 mg/ (Premix) 200 mls @ 200 mls/hr IV Q12H [facility] Last Admin: 09/24/17 23:12 Dose: 200 mls/hr Metronidazole 500 mg/ Premix 100 mls @ 100 mls/hr IV QID [facility] Last Admin: 09/25/17 06:44 Dose: 100 mls/hr Metoprolol Tartrate (Lopressor) 50 mg PO BID [facility] Last Admin: 09/24/17 21:34 Dose: 50 mg Morphine Sulfate (Morphine) 2 mg IVPUSH Q2H PRN PRN Reason: Pain (severe 7-10) Ondansetron HCl (Zofran) 4 mg IVPUSH Q4H PRN PRN Reason: Nausea Pantoprazole Sodium (Protonix Iv) 40 mg IV Q12HR [facility] Last Admin: 09/24/17 21:33 Dose: 40 mg Sodium Chloride (Saline Flush) 10 ml FLUSH ASDIRECTED PRN PRN Reason: Keep Vein Open Last Admin: 09/24/17 09:08 Dose: 10 ml Sodium Chloride (Saline Flush) 2.5 ml FLUSH ASDIRECTED PRN PRN Reason: Keep Vein Open Last Admin: 09/24/17 09:08 Dose: 2.5 ml Sucralfate (Carafate) 1 gm PO QIDACANDBED [facility] Last Admin: 09/25/17 06:44 Dose: 1 gm Discontinued Medications Lactated Ringer's (Ringers, Lactated) 1,000 mls @ 100 mls/hr IV ASDIRECTED [facility] Last Admin: 09/24/17 21:37 Dose: 100 mls/hr Pantoprazole Sodium (Protonix Iv) 40 mg IVPUSH NOW ONE Stop: 09/24/17 08:55 Last Admin: 09/24/17 09:08 Dose: 40 mg *Q Meaningful Use (DIS) - VTE *Q VTE Pharmacological Contraindications *Q: Risk of Bleeding
[2017-09-25] MEDS: Pantoprazole 40 MG Vial IV SCH ×2 (09:25→20:32)
[2017-09-25] MEDS: Hydrochlorothiazide 12.5 MG Cap PO SCH (09:25)
[2017-09-25] MEDS: Metoprolol Tartrate 50 MG Tab PO SCH ×2 (09:25→20:32)
[2017-09-25] MEDS: Fluticasone Propionate Nasal Spray 16 GM Bottle NASBOTH SCH (09:26)
--- NOTE | 2017-09-25 10:14 | PCM.PN ---
- General Info Date of Service: 09/25/17 Admission Dx/Problem (Free Text): Admission Diagnosis/Problem Admission Diagnosis/Problem Diverticulosis of intestine Subjective Update: Feeling good today. Tolerating CL diet, no abdominal pain or rectal pain. Continues to have small amount of blood in stools and when he wipes. No other complaints. Functional Status: Reports: Pain Controlled, Tolerating Diet, Ambulating, Urinating - Review of Systems General: Reports: No Symptoms. Denies: Fever, Weakness, Fatigue HEENT: Reports: No Symptoms. Denies: Headaches, Sore Throat Pulmonary: Reports: No Symptoms. Denies: Shortness of Breath, Cough, Sputum Cardiovascular: Reports: No Symptoms. Denies: Chest Pain, Edema, Lightheadedness Gastrointestinal: Reports: Other (some monae blood in stools). Denies: Abdominal Pain, Nausea, Vomiting Genitourinary: Reports: No Symptoms. Denies: Dysuria, Frequency, Burning, Urgency Musculoskeletal: Reports: No Symptoms Skin: Reports: No Symptoms Neurological: Reports: No Symptoms Psychiatric: Reports: No Symptoms - Patient Data Vitals - Most Recent: Last Vital Signs Temp 97 F 09/25/17 08:00 Pulse 71 09/25/17 09:25 Resp 16 09/25/17 08:00 BP 126/69 09/25/17 09:25 Pulse Ox 97 09/25/17 08:00 Weight - Most Recent: 90 kg I&O - Last 24 Hours: Intake & Output 09/24/17 09/25/17 09/25/17 22:59 06:59 14:59 Intake Total 715 1652 Output Total 515 1300 Balance 200 352 Lab Results Last 24 Hours: Laboratory Results - last 24 hr 09/24/17 09/25/17 09/25/17 Range/Units 07:00 04:48 04:48 WBC 7.26 (4.0-11.0) K/uL RBC 4.41 L (4.50-5.90) M/uL Hgb 14.3 (13.0-17.0) g/dL Hct 42.3 (38.0-50.0) % MCV 95.9 (80.0-98.0) fL MCH 32.4 H (27.0-32.0) pg MCHC 33.8 (31.0-37.0) g/dL RDW Std Deviation 53.3 (28.0-62.0) fl RDW Coeff of Mary 15 (11.0-15.0) % Plt Count 134 L (150-400) K/uL MPV 8.90 (7.40-12.00) fL Neut % (Auto) 62.6 (48.0-80.0) % Lymph % (Auto) 25.1 (16.0-40.0) % [place] % (Auto) 9.9 (0.0-15.0) % Eos % (Auto) 2.1 (0.0-7.0) % Baso % (Auto) 0.3 (0.0-1.5) % Neut # (Auto) 4.6 (1.4-5.7) K/uL Lymph # (Auto) 1.8 (0.6-2.4) K/uL [place] # (Auto) 0.7 (0.0-0.8) K/uL Eos # (Auto) 0.2 (0.0-0.7) K/uL Baso # (Auto) 0.0 (0.0-0.1) K/uL Nucleated RBC % 0.0 /100WBC Nucleated RBCs # 0 K/uL Sodium 140 (136-148) mmol/L Potassium 4.1 (3.5-5.1) mmol/L Chloride 106 (98-107) mmol/L Carbon Dioxide 28.9 (21.0-32.0) mmol/L BUN 17 (7.0-18.0) mg/dL Creatinine 1.5 H (0.8-1.3) mg/dL Est Cr Clr Drug Dosing 43.83 mL/min Estimated GFR (MDRD) 45.1 ml/min Glucose 115 H (74-106) mg/dL Calcium 8.6 (8.5-10.1) mg/dL H. pylori IgG Antibody NEGATIVE (NEG) Lai Results Last 24 Hours: Microbiology 09/25/17 00:30 Clostridium difficile Toxin A & B - Final Stool / Feces Negative for C.Diff Toxin/AG Stool for WBCs - Final POSITIVE FOR WBC'S 09/25/17 00:30 Campylobacter Antigen Assay - Final Stool / Feces NEGATIVE CAMPYLOBACTER AG 09/24/17 12:30 Stool Occult Blood (LAI) - Final Stool / Feces POSITIVE OCCULT BLOOD Med Orders - Current: Current Medications Fluticasone Propionate (Flonase) 16 gm NASBOTH DAILY [facility] Last Admin: 09/25/17 09:26 Dose: 1 spray Hydrochlorothiazide (Hydrochlorothiazide) 12.5 mg PO DAILY [facility] Last Admin: 09/25/17 09:25 Dose: 12.5 mg Ciprofloxacin/Dextrose 400 mg/ (Premix) 200 mls @ 200 mls/hr IV Q12H [facility] Last Admin: 09/24/17 23:12 Dose: 200 mls/hr Metronidazole 500 mg/ Premix 100 mls @ 100 mls/hr IV QID [facility] Last Admin: 09/25/17 06:44 Dose: 100 mls/hr Metoprolol Tartrate (Lopressor) 50 mg PO BID [facility] Last Admin: 09/25/17 09:25 Dose: 50 mg Morphine Sulfate (Morphine) 2 mg IVPUSH Q2H PRN PRN Reason: Pain (severe 7-10) Ondansetron HCl (Zofran) 4 mg IVPUSH Q4H PRN PRN Reason: Nausea Pantoprazole Sodium (Protonix Iv) 40 mg IV Q12HR [facility] Last Admin: 09/25/17 09:25 Dose: 40 mg Sodium Chloride (Saline Flush) 10 ml FLUSH ASDIRECTED PRN PRN Reason: Keep Vein Open Last Admin: 09/24/17 09:08 Dose: 10 ml Sodium Chloride (Saline Flush) 2.5 ml FLUSH ASDIRECTED PRN PRN Reason: Keep Vein Open Last Admin: 09/24/17 09:08 Dose: 2.5 ml Sucralfate (Carafate) 1 gm PO QIDACANDBED [facility] Last Admin: 09/25/17 06:44 Dose: 1 gm Discontinued Medications Lactated Ringer's (Ringers, Lactated) 1,000 mls @ 100 mls/hr IV ASDIRECTED [facility] Last Admin: 09/24/17 21:37 Dose: 100 mls/hr Pantoprazole Sodium (Protonix Iv) 40 mg IVPUSH NOW ONE Stop: 09/24/17 08:55 Last Admin: 09/24/17 09:08 Dose: 40 mg - Exam General: Alert, Oriented, Cooperative, No Acute Distress Neck: Supple Lungs: Clear to Auscultation, Normal Respiratory Effort Cardiovascular: Regular Rate, Regular Rhythm GI/Abdominal Exam: Normal Bowel Sounds, Soft, Non-Tender, No Organomegaly, No Distention, No Abnormal Bruit, No Mass, Pelvis Stable, Other (stool light brown and small amount of monae blood noted in toilet) Back Exam: Normal Inspection, Full Range of Motion Extremities: Normal Inspection, Normal Range of Motion, Non-Tender, No Pedal Edema, Normal Capillary Refill Neurological: No New Focal Deficit Psy/Mental Status: Alert, Normal Affect, Normal Mood - Problem List & Annotations (1) Sigmoid diverticulitis SNOMED Code(s): 627114814 Code(s): K57.32 - DVTRCLI OF LG INT W/O PERFORATION OR ABSCESS W/O BLEEDING Status: Acute Current Visit: Yes (2) Rectal bleeding SNOMED Code(s): 42767255 Code(s): K62.5 - HEMORRHAGE OF ANUS AND RECTUM Status: Acute Current Visit: Yes (3) Upper GI bleeding SNOMED Code(s): 18027691 Code(s): K92.2 - GASTROINTESTINAL HEMORRHAGE, UNSPECIFIED Status: Suspected Current Visit: Yes (4) HTN (hypertension) SNOMED Code(s): 05627266 Code(s): I10 - ESSENTIAL (PRIMARY) HYPERTENSION Status: Chronic Current Visit: Yes Qualifiers: Hypertension type: essential hypertension Qualified Code(s): I10 - Essential (primary) hypertension (5) Hypercholesteremia SNOMED Code(s): 16309197 Code(s): E78.00 - PURE HYPERCHOLESTEROLEMIA, UNSPECIFIED Status: Chronic Current Visit: Yes (6) GERD (gastroesophageal reflux disease) SNOMED Code(s): 595567833 Code(s): K21.9 - GASTRO-ESOPHAGEAL REFLUX DISEASE WITHOUT ESOPHAGITIS Status: Chronic Current Visit: Yes Qualifiers: Esophagitis presence: esophagitis presence not specified Qualified Code(s) : K21.9 - Gastro-esophageal reflux disease without esophagitis (7) History of poliomyelitis SNOMED Code(s): 267987684 Code(s): Z86.12 - PERSONAL HISTORY OF POLIOMYELITIS Status: Chronic Current Visit: Yes - Problem List Review Problem List Initiated/Reviewed/Updated: Yes - My Orders Last 24 Hours: My Active Orders 09/24/17 11:30 Oxygen Therapy [RC] PRN Up ad Britni [RC] ASDIRECTED VTE/DVT Education [RC] PER UNIT ROUTINE Vital Signs [RC] Q4H Morphine 2 mg IVPUSH Q2H PRN Resuscitation Status Routine 09/24/17 11:31 Fecal Occult Blood Collection [RC] ASDIRECTED Intake and Output [RC] Q12H Ondansetron [Zofran] 4 mg IVPUSH Q4H PRN Sequential Compression Device [OM.PC] Per Unit Routine 09/24/17 11:45 Ciprofloxacin in D5W [Cipro in D5W 400 MG/200 ML] 400 mg Premix Bag 1 bag IV Q12H 09/24/17 12:00 metroNIDAZOLE/Normal Saline [Flagyl 500 MG in NS 100 ML] 500 mg Premix Bag 1 bag IV QID 09/24/17 12:30 OCCULT BLOOD DIAGNOSTIC [OP] Routine 09/24/17 12:54 Hydrochlorothiazide 12.5 mg PO DAILY 09/24/17 12:55 Metoprolol Tartrate [Lopressor] 50 mg PO BID 09/24/17 14:11 Communication Order [RC] PRN 09/24/17 17:00 Sucralfate [Carafate] 1 gm PO QIDACANDBED 09/24/17 21:00 Pantoprazole [ProTONIX IV] 40 mg IV Q12HR 09/25/17 00:30 CDIFF TOX A+B [OP] Routine CULTURE STOOL + CAMPY+SHIGATOX [RM] Routine WBC, STOOL [OP] Routine 09/25/17 08:59 Ready for Discharge [RC] PER UNIT ROUTINE 09/25/17 09:00 Fluticasone Propionate [Flonase] 16 gm NASBOTH DAILY 09/25/17 Breakfast Full Liquid Diet [DIET] 09/26/17 05:11 BASIC METABOLIC PANEL,BMP [CHEM] AM CBC WITH AUTO DIFF [HEME] AM - Plan Plan:: This 77 alexa old male admitted with cute sigmoid diverticulitis with rectal bleeding 1. Acute sigmoid diverticulitis: Improving. No leukocytosis. Stool this morning , light brown with small amount of monae blood. No black or tarry. Cdiff negative, Campylobacter neg, other stool cultures pending. Continue Ciprofloxacin and Flagyl. Tolerating diet will, well stop IVFs. Hgb remains stable. Advance to soft diet. family requests to be set up with Dr Hightower for follow up and endoscopy. Will trial hemorrhoidal suppository today. 2. Suspected Upper GI bleed: Continue Protonix IV Q12hrs and Carafate with meals. 3. Elevated BUN/Cr: BUN improved. Cr 1.5. 4. HTN: Stable, Will continue HCT and Metoprolol. VTE prophylaxis: SCDs and ambulation only due to acute GI bleeding. Dispo: 1 day pending improvement.
[2017-09-25] MEDS: Ciprofloxacin in D5W 400 MG in Premix Bag 1 BAG IV SCH ×2 (10:55)
[2017-09-25] MEDS ORDERED: Cocoa Butter/Phenylephrine Rectal Supp RECTAL SCH (11:45)
[2017-09-26] MEDS: Ciprofloxacin in D5W 400 MG in Premix Bag 1 BAG IV SCH ×2 (00:35)
[2017-09-26] MEDS: metroNIDAZOLE/Normal Saline 500 MG in Premix Bag 1 BAG IV SCH ×2 (01:40→06:37)
[2017-09-26] MEDS: Sucralfate Suspension 1 GM/10 ML Cup PO SCH (06:38)
[2017-09-26] MEDS: Pantoprazole 40 MG Vial IV SCH (08:05)
[2017-09-26] MEDS: Metoprolol Tartrate 50 MG Tab PO SCH (08:09)
[2017-09-26] MEDS: Fluticasone Propionate Nasal Spray 16 GM Bottle NASBOTH SCH (08:10)
[2017-09-26] MEDS: Hydrochlorothiazide 12.5 MG Cap PO SCH (08:10)
--- NOTE | 2017-09-26 10:29 | PCM.DCSUM1 ---
Discharge Summary - Hospital Course Brief History: This 77 year old male with pmh of HTN, hypercholesterolemia presented to the ED this with 3 episodes of bloody bowel movements this morning. He reports he woke up around 4 am, which is normal to have a BM. Noticed monae blood in this stool. He then had to have another stool around 4: 30 which was monae blood present and then again at 5:00, which was darker in appearance, more maroon. He denied any abdominal pain or rectal pain. He otherwise has been feeling well recently with no abdominal pain, chest pain, SOB or palpitations. He reports some heartburn. He was switched to famotidine for heartburn, from Prilosec. He made this switch a few days ago and has noticed an increase in heartburn. He also reports using Aleve 1-2 times daily for chronic back pain. He reports eating "[place] meat", raw ground beef, that was not fresh a couple days ago, no body else ate the meat but him. He denies bowel habit changes recently. He has had bloody in his stool previously, but not recently and thought it was related to hemorrhoids. He had a colonoscopy 8- [address] Reilly, in which he reports was normal. He has never had an EGD. No family history of colon cancer. He does report his mother had history of diverticulosis, but he prior to this never known he had it. He denies current tobacco use, quit in the 60's, rare alcohol use and no recreational drug use. In the ED no leukocytosis noted, hgb 15.7. BUN 25 and Cr 1.6. UA was negative. Abd/pelvis CT was obtained which revealed "sigmoid diverticulosis. Candy sigmoid fat stranding. The appearance is likely related to mild sigmoid diverticulitis without abscess formation or bowel obstruction. No free air. Scattered diverticula elsewhere within the colon". VS were stable. He was treated with Protonix in the ED. He was admitted observation for sigmoid diverticulitis and rectal bleeding. PCP, Dr Ochoa. - Discharge Data Discharge Date: 09/26/17 Discharge Disposition: Home, Self-Care 01 Condition: Good - Discharge Diagnosis/Problem(s) (1) Sigmoid diverticulitis SNOMED Code(s): 028092294 ICD Code: K57.32 - DVTRCLI OF LG INT W/O PERFORATION OR ABSCESS W/O BLEEDING Status: Acute Current Visit: Yes (2) Bleeding hemorrhoids SNOMED Code(s): 23081163 ICD Code: K64.9 - UNSPECIFIED HEMORRHOIDS Status: Acute Current Visit: Yes (3) Rectal bleeding SNOMED Code(s): 63999761 ICD Code: K62.5 - HEMORRHAGE OF ANUS AND RECTUM Status: Acute Current Visit: Yes (4) Upper GI bleeding SNOMED Code(s): 24284019 ICD Code: K92.2 - GASTROINTESTINAL HEMORRHAGE, UNSPECIFIED Status: Suspected Current Visit: Yes (5) HTN (hypertension) SNOMED Code(s): 64525007 ICD Code: I10 - ESSENTIAL (PRIMARY) HYPERTENSION Status: Chronic Current Visit: Yes Qualifiers: Hypertension type: essential hypertension Qualified Code(s): I10 - Essential (primary) hypertension (6) Hypercholesteremia SNOMED Code(s): 39898633 ICD Code: E78.00 - PURE HYPERCHOLESTEROLEMIA, UNSPECIFIED Status: Chronic Current Visit: Yes (7) GERD (gastroesophageal reflux disease) SNOMED Code(s): 645007672 ICD Code: K21.9 - GASTRO-ESOPHAGEAL REFLUX DISEASE WITHOUT ESOPHAGITIS Status: Chronic Current Visit: Yes Qualifiers: Esophagitis presence: esophagitis presence not specified Qualified Code(s) : K21.9 - Gastro-esophageal reflux disease without esophagitis (8) History of poliomyelitis SNOMED Code(s): 652032760 ICD Code: Z86.12 - PERSONAL HISTORY OF POLIOMYELITIS Status: Chronic Current Visit: Yes - Patient Instructions Diet: GI Soft/Low Residue/Low Fiber Activity: As Tolerated, No Strenuous Activities Driving: May Drive Today Showering/Bathing: May Shower Notify Provider of: Fever, Increased Pain, Swelling and Redness, Drainage, Nausea and/or Vomiting Other/Special Instructions: Decrease acidic food intake and NO NSAIDs (Aleve, Motrin, Advil, Ibuprofen) - Discharge Plan Prescriptions/Med Rec: Ciprofloxacin HCl [Cipro] 500 mg PO BID #18 tablet metroNIDAZOLE [Flagyl] 500 mg PO TID #27 tablet Pantoprazole Sodium [Protonix] 40 mg PO BID #60 tablet. Phenylephrine HCl/Humble Butter [Preparation H Suppository] 1 each RC BID PRN 30 Days #20 supp.rect PRN Reason: hemorrhoidal bleed Sucralfate [Carafate] 1 gm PO QIDPCANDBED #120 tablet Home Medications: Home Meds Fish Oil/[place]-3 Fatty Acids [Fish Oil] 1,200 mg PO DAILY 09/24/17 [History] Fluticasone Propionate 1 puff NS DAILY 09/24/17 [History] Hydrochlorothiazide 12.5 mg PO DAILY 09/24/17 [History] Metoprolol Tartrate 50 mg PO BID 09/24/17 [History] Ciprofloxacin HCl [Cipro] 500 mg PO BID #18 tablet 09/25/17 [Rx] Pantoprazole Sodium [Protonix] 40 mg PO BID #60 tablet. 09/25/17 [Rx] Sucralfate [Carafate] 1 gm PO QIDPCANDBED #120 tablet 09/25/17 [Rx] metroNIDAZOLE [Flagyl] 500 mg PO TID #27 tablet 09/25/17 [Rx] Phenylephrine HCl/Humble Butter [Preparation H Suppository] 1 each RC BID PRN 30 Days #20 supp.rect 09/26/17 [Rx] Patient Handouts: Colonoscopy, Adult, [id number], Flexible Sigmoidoscopy, Diverticulitis, [id number], Colonoscopy, Adult, Care After, [id number], Flexible Sigmoidoscopy, Care After, Sucralfate tablets, Pantoprazole tablets, Ciprofloxacin tablets, Low-Fiber Eating Plan, Metronidazole tablets or capsules Referrals: [facility] [Outside] Ronit Hightower MD [Physician] - 10/06/17 2:30 pm (follow up 3-4 weeks) Luis Ochoa MD [Primary Care Provider] - 10/06/17 3:30 am (follow up 1 week) - Discharge Summary/Plan Comment DC Time >30 min.: No Discharge Summary/Plan Comment: Discharge Diagnoses: Sigmoid diverticulitis Rectal bleeding- suspected internal hemorrhoids GERD HTN Hypercholesterolemia Hx polo Fiore was admitted secondary to rectal bleeding. Initially he reports monae blood stools then mixed black stools. Stools noted while in hospital were light brown with scattered monae blood. Heme positive stools, negative for bacteria, positive WBCs. CT was noted to have mild sigmoid diverticulitis. he had no abdominal pain. Some reports of GERD worsening recently. He was treated with Ciprofloxacin and Flagyl along with Prep H suppository for suspected internal bleeding hemmorrhoids. He denied rectal pain and no obvious hemorrhoids noted on rectal exam. He was given Protonix and Carafate for GERD and possible upper gi bleeding since he described stool as black at one point, but was never visualized per staff. H pylori negative. Hgb remained stable throughout stay in mid 14s. Bleeding stopped. He was discharged home today with follow up with PCP , Dr Ochoa as well as with general surgeon, Dr Hightower, per family request. He was encouraged to have both EGD and colonoscopy to further evaluate GERD and diverticulosis. He will be continued on Protonix, Carafate x 1 month. He was also given Prep H suppositories PRN. He was also continued on Cipro and Flagyl for 7 more days for acute sigmoid diverticulitis. - General Info Date of Service: 09/26/17 Admission Dx/Problem (Free Text: Admission Diagnosis/Problem Admission Diagnosis/Problem Diverticulosis of intestine Subjective Update: Feeling good this morning, very eager for discharge. BM this morning, light brown, no blood noted. No chest pain or abdominal pain. Functional Status: Reports: Pain Controlled, Tolerating Diet, Ambulating, Urinating - Review of Systems General: Reports: No Symptoms. Denies: Fever, Weakness, Fatigue, Malaise, Chills HEENT: Reports: No Symptoms. Denies: Headaches, Sore Throat, Visual Changes Pulmonary: Reports: No Symptoms. Denies: Shortness of Breath Cardiovascular: Reports: No Symptoms. Denies: Chest Pain Gastrointestinal: Reports: No Symptoms. Denies: Abdominal Pain, Nausea, Vomiting Genitourinary: Reports: No Symptoms Musculoskeletal: Reports: No Symptoms Neurological: Reports: No Symptoms Psychiatric: Reports: No Symptoms - Patient Data Vitals - Most Recent: Last Vital Signs Temp 97.3 F 09/26/17 08:00 Pulse 93 09/26/17 08:09 Resp 16 09/26/17 08:00 BP 115/57 L 09/26/17 08:09 Pulse Ox 95 09/26/17 08:00 Weight - Most Recent: 90 kg I&O - Last 24 hours: Intake & Output 09/25/17 09/26/17 09/26/17 22:59 06:59 14:59 Intake Total 1420 1118 100 Output Total 1640 1080 Balance -220 38 100 Lab Results - Last 24 hrs: Laboratory Results - last 24 hr 09/25/17 09/26/17 09/26/17 Range/Units 04:48 04:33 04:33 WBC 6.51 (4.0-11.0) K/uL RBC 4.36 L (4.50-5.90) M/uL Hgb 14.2 (13.0-17.0) g/dL Hct 41.5 (38.0-50.0) % MCV 95.2 (80.0-98.0) fL MCH 32.6 H (27.0-32.0) pg MCHC 34.2 (31.0-37.0) g/dL RDW Std Deviation 51.4 (28.0-62.0) fl RDW Coeff of Mary 15 (11.0-15.0) % Plt Count 128 L (150-400) K/uL MPV 9.30 (7.40-12.00) fL Neut % (Auto) 61.6 (48.0-80.0) % Lymph % (Auto) 22.9 (16.0-40.0) % [place] % (Auto) 12.7 (0.0-15.0) % Eos % (Auto) 2.3 (0.0-7.0) % Baso % (Auto) 0.5 (0.0-1.5) % Neut # (Auto) 4.0 (1.4-5.7) K/uL Lymph # (Auto) 1.5 (0.6-2.4) K/uL [place] # (Auto) 0.8 (0.0-0.8) K/uL Eos # (Auto) 0.2 (0.0-0.7) K/uL Baso # (Auto) 0.0 (0.0-0.1) K/uL Nucleated RBC % 0.0 /100WBC Nucleated RBCs # 0 K/uL Sodium 139 (136-148) mmol/L Potassium 3.6 (3.5-5.1) mmol/L Chloride 106 (98-107) mmol/L Carbon Dioxide 27.5 (21.0-32.0) mmol/L BUN 19 H (7.0-18.0) mg/dL Creatinine 1.4 H (0.8-1.3) mg/dL Est Cr Clr Drug Dosing 46.96 mL/min Estimated GFR (MDRD) 48.9 ml/min Glucose 111 H (74-106) mg/dL Calcium 8.8 (8.5-10.1) mg/dL PSA Screen 0.53 (0.05-4.00) ng/mL ARSH Results - Last 24 hrs: Microbiology 09/25/17 00:30 Campylobacter Antigen Assay - Final Stool / Feces NEGATIVE CAMPYLOBACTER AG - Final NEGATIVE FOR SHIGA TOXIN 1 - Final NEGATIVE FOR SHIGA TOXIN 2 Med Orders - Current: Current Medications Humble Butter/Phenylephrine (Preparation H Supp) 1 each RECTAL ONETIME [facility] Last Admin: 09/25/17 12:18 Dose: 1 each Fluticasone Propionate (Flonase) 16 gm NASBOTH DAILY [facility] Last Admin: 09/26/17 08:10 Dose: 1 spray Hydrochlorothiazide (Hydrochlorothiazide) 12.5 mg PO DAILY [facility] Last Admin: 09/26/17 08:10 Dose: 12.5 mg Ciprofloxacin/Dextrose 400 mg/ (Premix) 200 mls @ 200 mls/hr IV Q12H [facility] Last Admin: 09/26/17 00:35 Dose: 200 mls/hr Metronidazole 500 mg/ Premix 100 mls @ 100 mls/hr IV QID [facility] Last Admin: 09/26/17 06:37 Dose: 100 mls/hr Metoprolol Tartrate (Lopressor) 50 mg PO BID [facility] Last Admin: 09/26/17 08:09 Dose: 50 mg Morphine Sulfate (Morphine) 2 mg IVPUSH Q2H PRN PRN Reason: Pain (severe 7-10) Ondansetron HCl (Zofran) 4 mg IVPUSH Q4H PRN PRN Reason: Nausea Pantoprazole Sodium (Protonix Iv) 40 mg IV Q12HR [facility] Last Admin: 09/26/17 08:05 Dose: 40 mg Sodium Chloride (Saline Flush) 10 ml FLUSH ASDIRECTED PRN PRN Reason: Keep Vein Open Last Admin: 09/24/17 09:08 Dose: 10 ml Sodium Chloride (Saline Flush) 2.5 ml FLUSH ASDIRECTED PRN PRN Reason: Keep Vein Open Last Admin: 09/24/17 09:08 Dose: 2.5 ml Sucralfate (Carafate) 1 gm PO QIDACANDBED [facility] Last Admin: 09/26/17 06:38 Dose: 1 gm Discontinued Medications Lactated Ringer's (Ringers, Lactated) 1,000 mls @ 100 mls/hr IV ASDIRECTED VARGHESE Last Admin: 09/24/17 21:37 Dose: 100 mls/hr Pantoprazole Sodium (Protonix Iv) 40 mg IVPUSH NOW ONE Stop: 09/24/17 08:55 Last Admin: 09/24/17 09:08 Dose: 40 mg - Exam General: Reports: Alert, Oriented, Cooperative, No Acute Distress Neck: Reports: Supple Lungs: Reports: Clear to Auscultation, Normal Respiratory Effort Cardiovascular: Reports: Regular Rate, Regular Rhythm GI/Abdominal Exam: Normal Bowel Sounds, Soft, Non-Tender, No Organomegaly, No Distention, No Abnormal Bruit, No Mass, Pelvis Stable Extremities: Normal Inspection, Normal Range of Motion, Non-Tender, No Pedal Edema, Normal Capillary Refill Neurological: Reports: No New Focal Deficit Psy/Mental Status: Reports: Alert, Normal Affect, Normal Mood *Q Meaningful Use (DIS) - VTE *Q VTE Pharmacological Contraindications *Q: Risk of Bleeding
== END 2017-09-26 10:30 | disposition home or self-care (01) ==
LOC: MW.ED 06:14 → MW.MS 09:14
PROVIDERS: ADMIT Internal Medicine; ATTEND Internal Medicine
DX: K57.32 Diverticulitis of large intestine without perforation or abscess without bleeding (principal); K92.1 Melena; I10 Essential (primary) hypertension; E78.00 Pure hypercholesterolemia, unspecified; G89.29 Other chronic pain; M54.9 Dorsalgia, unspecified; K21.9 Gastro-esophageal reflux disease without esophagitis; Z86.12 Personal history of poliomyelitis; Z87.891 Personal history of nicotine dependence; Z79.51 Long term (current) use of inhaled steroids; Z79.899 Other long term (current) drug therapy
CPT/HCPCS: 36415; 74176; 80048; 80053; 81001; 82272; 83630; 85025; 85610; 86677; 87046; 87324; 87899; 93005; 96374; 99285; A9270; C9113; G0103; J0744; J7120; 96365; 96366; 96367; 96375; 96376; G0378

== ENCOUNTER 2017-11-04 08:38 | Day surgery (SDC) | payer MEDICARE, OTHER ==
[~2017-11-04 08:38] MED LIST: Lactated Ringers 1,000 ML IV SCH; Sodium Chloride 0.9% 10 ML Syringe FLUSH PRN; Sodium Chloride 0.9% 2.5 ML Syringe FLUSH PRN
[2017-11-04] MEDS ORDERED: Midazolam 1 MG/ML 2 ML SDV ONE (08:44)
[2017-11-04] MEDS ORDERED: Propofol 200 MG/20 ML SDV ONE ×2 (08:44→10:28)
[2017-11-04] MEDS ORDERED: fentaNYL 100 MCG/2 ML SDV ONE (08:44)
--- NOTE | 2017-11-04 09:39 | PCM.PREANE ---
Preanesthetic Assessment - Anesthesia/Transfusion/Family Hx Anesthesia History: Prior Anesthesia Without Reaction Other Type of Anesthesia Reaction Comment: pt daughter had malignant hyperthermia Family History of Anesthesia Reaction: No Transfusion History: No Prior Transfusion(s) Intubation History: Unknown - Review of Systems General: No Symptoms Pulmonary: No Symptoms Cardiovascular: No Symptoms Gastrointestinal: Difficulty Swallowing, Hematochezia Neurological: No Symptoms Other: Reports: None - Physical Assessment O2 Sat by Pulse Oximetry: 94 Respiratory Rate: 16 Vital Signs: Last Vital Signs Temp 36.4 C 11/04/17 09:09 Pulse 74 11/04/17 09:09 Resp 16 11/04/17 09:09 BP 111/67 11/04/17 09:09 Pulse Ox 94 L 11/04/17 09:09 Height: 1.83 m Weight: 90.718 kg ASA Class: 2 Mental Status: Alert & Oriented x3 Airway Class: Mallampati = 2 Dentition: Reports: Normal Dentition, Implants (x2, one front upper one on the back) Thyro-Mental Finger Breadths: 2 Mouth Opening Finger Breadths: 2 ROM/Head Extension: Limited/Partial Lungs: Clear to Auscultation, Normal Respiratory Effort Cardiovascular: Regular Rate, Regular Rhythm - Allergies Allergies/Adverse Reactions: Allergies Allergy/AdvReac Type Severity Reaction Status Date / Time No Known Allergies Allergy Verified 10/30/17 16:20 - Blood Blood Available: No - Anesthesia Plan Pre-Op Medication Ordered: None - Acknowledgements Anesthesia Type Planned: MAC Pt an Appropriate Candidate for the Planned Anesthesia: Yes Alternatives and Risks of Anesthesia Discussed w Pt/Guardian: Yes Pt/Guardian Understands and Agrees with Anesthesia Plan: Yes PreAnesthesia Questionnaire HEENT History: Reports: Impaired Vision, Other (See Below) Other HEENT History: wears glasses Cardiovascular History: Reports: High Cholesterol, Hypertension Respiratory History: Reports: None Gastrointestinal History: Reports: GERD, Hemorrhoids, Other (See Below) ( probable h/o diverticulitis (on CT)) Genitourinary History: Reports: Renal Calculus Musculoskeletal History: Reports: Fracture Other Musculoskeletal History: hx fx wrist Neurological History: Reports: Other (See Below) (h/o polyo as child) Psychiatric History: Reports: None Hematologic History: Reports: None Oncologic (Cancer) History: Reports: None Other Dermatologic History: pre skin cancer removed from face - Past Surgical History Head Surgeries/Procedures: Reports: None HEENT Surgical History: Reports: Tonsillectomy GI Surgical History: Reports: Colonoscopy, EGD Other Neurological Surgeries/Procedures: Pilio, with mild dysphagia. Dermatological Surgical History: Reports: Skin Biopsy - SUBSTANCE USE Smoking Status *Q: Former Smoker Recreational Drug Use History: No - HOME MEDS Home Medications: Home Meds Fish Oil/[place]-3 Fatty Acids [Fish Oil] 1,200 mg PO DAILY 09/24/17 [History] Fluticasone Propionate 1 puff NS DAILY PRN 09/24/17 [History] Hydrochlorothiazide 12.5 mg PO DAILY 09/24/17 [History] Metoprolol Tartrate 50 mg PO BID 09/24/17 [History] Omeprazole 40 mg PO DAILY 10/30/17 [History] - CURRENT (IN HOUSE) MEDS Current Meds: Current Medications Lactated Ringer's (Ringers, Lactated) 1,000 mls @ 125 mls/hr IV ASDIRECTED VARGHESE Last Admin: 11/04/17 09:13 Dose: 125 mls/hr Sodium Chloride (Saline Flush) 10 ml FLUSH ASDIRECTED PRN PRN Reason: Keep Vein Open Sodium Chloride (Saline Flush) 2.5 ml FLUSH ASDIRECTED PRN PRN Reason: Keep Vein Open Sodium Chloride (Saline Flush) 10 ml FLUSH ASDIRECTED PRN PRN Reason: Keep Vein Open Sodium Chloride (Saline Flush) 2.5 ml FLUSH ASDIRECTED PRN PRN Reason: Keep Vein Open Discontinued Medications Fentanyl (Sublimaze) Confirm Administered Dose 100 mcg .ROUTE .STK-MED ONE Stop: 11/04/17 08:45 Midazolam HCl (Versed 1 Mg/Ml) Confirm Administered Dose 2 mg .ROUTE .STK-MED ONE Stop: 11/04/17 08:45 Propofol (Diprivan 20 Ml) Confirm Administered Dose 200 mg .ROUTE .STK-MED ONE Stop: 11/04/17 08:45
[2017-11-04] MEDS ORDERED: Phenylephrine/Normal Saline 100 MCG/ML 10 ML Syringe ONE (10:26)
--- NOTE | 2017-11-04 11:10 | PCM.POSTAN ---
POST ANESTHESIA ASSESSMENT - MENTAL STATUS Mental Status: Alert, Oriented - RESPIRATORY Respiratory Status: Respiratory Rate WNL, Airway Patent, O2 Saturation Stable - CARDIOVASCULAR CV Status: Pulse Rate WNL, Blood Pressure Stable - GASTROINTESTINAL GI Status: No Symptoms - PAIN Pain Score: 0 - POST OP HYDRATION Hydration Status: Adequate & Stable - OBSERVATIONS Free Text/Narrative:: Pt stable for discharge to phase II
--- NOTE | 2017-11-04 11:10 | PCM.OPNOTE ---
- General Post-Op/Procedure Note Date of Surgery/Procedure: 11/04/17 Operative Procedure(s): Diagnostic EGD and colonoscopy Findings: Small hiatal hernia, hyperplastic gastric polyp, diverticulosis throughout colon , ascending colon polyp, rectal polyp Pre Op Diagnosis: Diverticulosis Post-Op Diagnosis: Small hiatal hernia, hyperplastic gastric polyp, diverticulosis throughout colon, ascending colon polyp, rectal polyp Anesthesia Technique: [facility] [place] Primary Surgeon: Ronit Hightower Condition: Good
--- NOTE | 2017-11-05 11:56 | OR ---
SURGEON: ALYSSA TRINH MD DATE OF PROCEDURE: 11/04/2017 PREOPERATIVE DIAGNOSES: 1. History of colitis. 2. Gastroesophageal reflux disease. POSTOPERATIVE DIAGNOSES: 1. Hiatal hernia. 2. Hyperplastic gastric polyps. 3. Diverticulosis. 4. Rectal polyp. 5. Ascending colon polyp. PROCEDURE PERFORMED: Diagnostic EGD and colonoscopy. ANESTHESIA: MAC. INSTRUMENT USED: Olympus endoscope, colonoscope. EXTENT OF EXAM: To the second portion of duodenum, to the cecum. PREPARATION: Good. LIMITATIONS: None. INDICATION FOR EXAMINATION: The patient is a 77-year-old male who was recently admitted to the hospital and diagnosed with colitis and bloody bowel movements with a possibility of diverticulitis. He also has a longstanding history of GERD. He is approximately 2 months out from his original diagnosis. We discussed the need for diagnostic EGD and colonoscopy. We discussed the procedure, expected perioperative course, and risks including bleeding, infection, or damage to surrounding structures including perforation. The patient verbalized understanding and wishes to proceed. PROCEDURE IN DETAIL: The patient was brought to the endoscopy suite and placed in a beach chair position. A time-out was completed verifying the patient's name, age, date of , allergies, and procedure to be performed. A bite block was placed in the patient's mouth and continuous oxygen was provided via nasal cannula. Monitored anesthesia care was induced. After adequate sedation was achieved, a well- lubricated endoscope was placed in the patient's mouth and advanced under direct visualization to the level of the second portion of the duodenum. This appeared normal and a photograph was taken. The scope was then fully withdrawn while examining the color, texture, anatomy, and integrity of the mucosa of the upper GI tract. The duodenum appeared normal. The scope was brought into the stomach and a photograph taken of the GE junction as well as the pylorus. The patient was noted to have a small hiatal hernia. The gastric mucosa was free of inflammation or ulceration. However, I did note some scattered hyperplastic polyps within the body of the stomach. One of these was removed and sent to pathology. Biopsies were taken of the gastric antrum, body, and fundus and sent for histologic review and H. pylori testing. The scope was brought into the distal esophagus. A photograph was taken of the small hiatal hernia. The distal esophagus appeared to be free of any inflammation or ulceration. The scope was then removed and this portion of the procedure was terminated. The patient was then placed into a left lateral decubitus position. A digital rectal exam was performed, this exam was within normal limits. A well- lubricated colonoscope was inserted in the rectum and advanced under direct visualization to the level of cecum. The cecum was identified by both visual and anatomic landmarks. A photograph was taken of the cecal cap. I was able to retroflex the scope within the cecum, but forgot to take a picture. The scope was then fully withdrawn while examining the color, texture, anatomy, and integrity of the mucosa from the cecum to the anal canal. The patient was found to have a 2 to 3-mm polyp within the ascending colon. This was removed using a cold biopsy forceps. The patient had diverticulosis throughout his colon. The scope was brought into the rectum. A 3 to 4 mm polyp was noted within the rectum. This was removed using a cold biopsy forceps. The scope was then retroflexed and a photograph taken of the opening of the anal canal. This appeared normal. The scope was then straightened out and fully withdrawn. The [id number] time was 13 minutes. The patient tolerated the procedure well and was taken to PACU in stable condition. ENDOSCOPIC DIAGNOSES: 1. Hiatal hernia. 2. Hyperplastic gastric polyps. 3. Diverticulosis. 4. Rectal polyp. 5. Ascending colon polyp. RECOMMENDATIONS: Follow up in clinic in 2 weeks. SUDHEER JAVIER /[id number] DAY[place]
== END 2017-11-04 11:58 | disposition home or self-care (01) ==
LOC: MW.SDS 08:38
PROVIDERS: ATTEND Surgery
DX: K21.9 Gastro-esophageal reflux disease without esophagitis (principal); K29.50 Unspecified chronic gastritis without bleeding; K44.9 Diaphragmatic hernia without obstruction or gangrene; K31.7 Polyp of stomach and duodenum; D12.2 Benign neoplasm of ascending colon; K62.1 Rectal polyp; K57.30 Diverticulosis of large intestine without perforation or abscess without bleeding; Z87.891 Personal history of nicotine dependence
CPT/HCPCS: 43239; 45380; J2250; J3010; J7120; J2704

== ENCOUNTER 2021-06-10 10:09 | Emergency (ER) | payer MEDICARE, OTHER ==
[2021-06-10] MEDS ORDERED: Diphtheria,Pertussis(Acell),Tetanus Vaccine 0.5 ML Syringe IM ONE (10:14)
[2021-06-10] MEDS ORDERED: Bacitracin Oint 1 GM U/D Packet TOP ONE (10:14)
[2021-06-10] MEDS ORDERED: Acetaminophen 500 MG Tab PO ONE (10:20)
== END 2021-06-10 11:19 | disposition home or self-care (01) ==
LOC: MW.ED 10:09
DX: S00.01XA Abrasion of scalp, initial encounter (principal); E78.00 Pure hypercholesterolemia, unspecified; I10 Essential (primary) hypertension; K21.9 Gastro-esophageal reflux disease without esophagitis; Z23 Encounter for immunization; Z79.82 Long term (current) use of aspirin; Z79.899 Other long term (current) drug therapy; W00.0XXA Fall on same level due to ice and snow, initial encounter; Y92.22 Religious institution as the place of occurrence of the external cause
CPT/HCPCS: 70450; 90471; 90715; 99283; A9270

== ENCOUNTER 2024-03-14 11:29 | Inpatient (IN) | payer MEDICARE, OTHER ==
[2024-03-14] MEDS ORDERED: Sodium Chloride 0.9% 2.5 ML Syringe FLUSH PRN (11:46)
[2024-03-14] MEDS ORDERED: Sodium Chloride 0.9% 10 ML Syringe FLUSH PRN (11:46)
[2024-03-14 11:53] LABS: BASOPHILS ABSOLUTE AUTO 0.04 K/uL (0.00-0.20); BASOPHILS PERCENT AUTO 0.4 % (0.0-1.0); EOSINOPHILS ABSOLUTE AUTO 0.08 K/uL (0.00-0.45); EOSINOPHILS PERCENT AUTO 0.8 % (0.0-6.0); HEMATOCRIT 35.1 % (42.0-52.0); HEMOGLOBIN 11.6 g/dL (14.0-18.0); IMMATURE GRAN ABSOLUTE AUTO 0.06 K/uL (0.00-0.05); IMMATURE GRAN PERCENT AUTO 0.6 % (0.0-0.4); LYMPHOCYTES ABSOLUTE AUTO 1.55 K/uL (1.00-4.80); LYMPHOCYTES PERCENT AUTO 15.9 % (24.0-44.0); MEAN PLATELET VOLUME 9.8 fL (9.4-12.4); MONOCYTES ABSOLUTE AUTO 0.46 K/uL (0.00-0.80); MONOCYTES PERCENT AUTO 4.7 % (0.0-8.0); NEUTROPHILS ABSOLUTE AUTO 7.55 K/uL (1.80-7.70); NEUTROPHILS PERCENT AUTO 77.6 % (41.0-71.0); PLATELET COUNT,PLT 197 K/uL (150-400); RED BLOOD CELL COUNT 3.62 M/uL (4.52-5.90); WHITE BLOOD CELL COUNT,WBC 9.74 K/uL (3.9-11.3)
[2024-03-14 12:38] LABS: LACTIC ACID 3.3 mmol/L (0.4-2.0)
[2024-03-14] MEDS: cefTRIAXone 2 GM in Sodium Chloride 0.9% 50 ML IV ONE (12:54)
[2024-03-14 12:58] LABS: A/G RATIO 0.7 (0.9-1.6); ALBUMIN 3.2 g/dL (3.4-5.0); BILIRUBIN TOTAL 0.6 mg/dL (0.2-1.0); CARBON DIOXIDE,CO2 28.6 mmol/L (21.0-32.0); EST CRCL DRUG DOSING (CG) 29.64 mL/min; MAGNESIUM 2.2 mg/dL (1.8-2.4); POTASSIUM,K 3.9 mmol/L (3.5-5.1); PROTEIN TOTAL,TP 7.5 g/dL (6.4-8.2)
[2024-03-14] MEDS: Azithromycin 500 MG in Sodium Chloride 0.9% 250 ML IV ONE (13:37)
[2024-03-14] MEDS ORDERED: Bisacodyl 5 MG Tab PO PRN (16:15)
[2024-03-14] MEDS ORDERED: Ondansetron 4 MG Tab.DIS PO PRN (16:15)
[2024-03-14] MEDS ORDERED: Albuterol/Ipratropium 3.0-0.5 MG/3 ML Neb Soln NEB PRN (16:15)
[2024-03-14] MEDS ORDERED: Polyethylene Glycol 3350 Powder 17 GM Packet PO PRN (16:15)
[2024-03-14] MEDS: Enoxaparin 30 MG/0.3 ML Syringe SUBCUT SCH (17:05)
[2024-03-14] MEDS: Acetaminophen 325 MG Tab PO PRN (21:23)
[2024-03-14] MEDS: Metoprolol Tartrate 50 MG Tab PO SCH (21:24)
[2024-03-14 22:37] LABS: APPEARANCE,URINE CLEAR; BILIRUBIN,URINE NEGATIVE (NEGATIVE); COLOR,URINE YELLOW; GLUCOSE,URINE NEGATIVE (NEGATIVE); KETONES,URINE NEGATIVE (NEGATIVE); LEUKOCYTE ESTERASE,URINE NEGATIVE (NEGATIVE); NITRITE,URINE NEGATIVE (NEGATIVE); OCCULT BLOOD,URINE NEGATIVE (NEGATIVE); PROTEIN,URINE NEGATIVE (NEGATIVE)
[2024-03-14] MEDS: Sodium Chloride 0.9% 1,000 ML IV ONE (22:39)
[2024-03-15] MEDS: Sodium Chloride 0.9% 1,000 ML IV SCH (00:01)
[2024-03-15] MEDS: Melatonin 3 MG Tab PO PRN (01:36)
[2024-03-15 07:02] LABS: BASOPHILS ABSOLUTE AUTO 0.04 K/uL (0.00-0.20); BASOPHILS PERCENT AUTO 0.4 % (0.0-1.0); EOSINOPHILS ABSOLUTE AUTO 0.07 K/uL (0.00-0.45); EOSINOPHILS PERCENT AUTO 0.7 % (0.0-6.0); HEMATOCRIT 27.5 % (42.0-52.0); HEMOGLOBIN 9.2 g/dL (14.0-18.0); IMMATURE GRAN ABSOLUTE AUTO 0.08 K/uL (0.00-0.05); IMMATURE GRAN PERCENT AUTO 0.8 % (0.0-0.4); LYMPHOCYTES ABSOLUTE AUTO 1.94 K/uL (1.00-4.80); LYMPHOCYTES PERCENT AUTO 19.1 % (24.0-44.0); MEAN CORPUSCULAR HEMOGLOBIN 31.9 pg (28.0-32.0); MEAN CORPUSCULAR HGB CONC 33.5 g/dL (32.0-36.0); MEAN CORPUSCULAR VOLUME 95.5 fL (83.0-99.0); MEAN PLATELET VOLUME 9.2 fL (9.4-12.4); MONOCYTES ABSOLUTE AUTO 1.13 K/uL (0.00-0.80); MONOCYTES PERCENT AUTO 11.1 % (0.0-8.0); NEUTROPHILS ABSOLUTE AUTO 6.89 K/uL (1.80-7.70); NEUTROPHILS PERCENT AUTO 67.9 % (41.0-71.0); PLATELET COUNT,PLT 162 K/uL (150-400); RED BLOOD CELL COUNT 2.88 M/uL (4.52-5.90); WHITE BLOOD CELL COUNT,WBC 10.15 K/uL (3.9-11.3)
[2024-03-15 07:50] LABS: A/G RATIO 0.7 (0.9-1.6); ALBUMIN 2.7 g/dL (3.4-5.0); BILIRUBIN TOTAL 0.6 mg/dL (0.2-1.0); CALCIUM 8.5 mg/dL (8.5-10.1); CARBON DIOXIDE,CO2 21.3 mmol/L (21.0-32.0); CREATININE 1.9 mg/dL (0.8-1.3); EST CRCL DRUG DOSING (CG) 28.75 mL/min; POTASSIUM,K 3.9 mmol/L (3.5-5.1); PROTEIN TOTAL,TP 6.6 g/dL (6.4-8.2)
[2024-03-15] MEDS: buPROPion 150 MG Tab.ER PO SCH (08:50)
[2024-03-15] MEDS: Aspirin 81 MG Tab.Chew PO SCH (08:51)
[2024-03-15] MEDS: Pantoprazole 40 MG Tab.CR PO SCH (08:51)
[2024-03-15] MEDS: cefTRIAXone 1 GM in Sodium Chloride 0.9% 50 ML IV SCH (14:05)
[2024-03-15] MEDS: Azithromycin 500 MG in Sodium Chloride 0.9% 250 ML IV SCH (14:52)
[2024-03-16 06:26] LABS: BASOPHILS ABSOLUTE AUTO 0.04 K/uL (0.00-0.20); BASOPHILS PERCENT AUTO 0.5 % (0.0-1.0); EOSINOPHILS ABSOLUTE AUTO 0.11 K/uL (0.00-0.45); EOSINOPHILS PERCENT AUTO 1.4 % (0.0-6.0); HEMATOCRIT 21.9 % (42.0-52.0); HEMOGLOBIN 7.3 g/dL (14.0-18.0); IMMATURE GRAN ABSOLUTE AUTO 0.05 K/uL (0.00-0.05); IMMATURE GRAN PERCENT AUTO 0.7 % (0.0-0.4); LYMPHOCYTES ABSOLUTE AUTO 1.25 K/uL (1.00-4.80); LYMPHOCYTES PERCENT AUTO 16.3 % (24.0-44.0); MEAN CORPUSCULAR HEMOGLOBIN 32.6 pg (28.0-32.0); MEAN CORPUSCULAR HGB CONC 33.3 g/dL (32.0-36.0); MEAN CORPUSCULAR VOLUME 97.8 fL (83.0-99.0); MONOCYTES ABSOLUTE AUTO 1.02 K/uL (0.00-0.80); MONOCYTES PERCENT AUTO 13.3 % (0.0-8.0); NEUTROPHILS ABSOLUTE AUTO 5.21 K/uL (1.80-7.70); NEUTROPHILS PERCENT AUTO 67.8 % (41.0-71.0); PLATELET COUNT,PLT 136 K/uL (150-400); RED BLOOD CELL COUNT 2.24 M/uL (4.52-5.90); WHITE BLOOD CELL COUNT,WBC 7.68 K/uL (3.9-11.3)
[2024-03-16 06:49] LABS: A/G RATIO 0.7 (0.9-1.6); ALBUMIN 2.6 g/dL (3.4-5.0); BILIRUBIN TOTAL 0.5 mg/dL (0.2-1.0); CALCIUM 8.2 mg/dL (8.5-10.1); CREATININE 1.6 mg/dL (0.8-1.3); EST CRCL DRUG DOSING (CG) 34.14 mL/min; POTASSIUM,K 3.9 mmol/L (3.5-5.1); PROTEIN TOTAL,TP 6.2 g/dL (6.4-8.2)
[2024-03-17 06:22] LABS: BASOPHILS ABSOLUTE AUTO 0.03 K/uL (0.00-0.20); BASOPHILS PERCENT AUTO 0.4 % (0.0-1.0); EOSINOPHILS ABSOLUTE AUTO 0.14 K/uL (0.00-0.45); EOSINOPHILS PERCENT AUTO 2.1 % (0.0-6.0); HEMATOCRIT 20.9 % (42.0-52.0); HEMOGLOBIN 6.7 g/dL (14.0-18.0); IMMATURE GRAN ABSOLUTE AUTO 0.04 K/uL (0.00-0.05); IMMATURE GRAN PERCENT AUTO 0.6 % (0.0-0.4); LYMPHOCYTES ABSOLUTE AUTO 1.29 K/uL (1.00-4.80); LYMPHOCYTES PERCENT AUTO 18.9 % (24.0-44.0); MEAN CORPUSCULAR HEMOGLOBIN 31.6 pg (28.0-32.0); MEAN CORPUSCULAR HGB CONC 32.1 g/dL (32.0-36.0); MEAN CORPUSCULAR VOLUME 98.6 fL (83.0-99.0); MONOCYTES ABSOLUTE AUTO 0.92 K/uL (0.00-0.80); MONOCYTES PERCENT AUTO 13.5 % (0.0-8.0); NEUTROPHILS ABSOLUTE AUTO 4.39 K/uL (1.80-7.70); NEUTROPHILS PERCENT AUTO 64.5 % (41.0-71.0); PLATELET COUNT,PLT 133 K/uL (150-400); RED BLOOD CELL COUNT 2.12 M/uL (4.52-5.90); WHITE BLOOD CELL COUNT,WBC 6.81 K/uL (3.9-11.3)
[2024-03-17 06:48] LABS: A/G RATIO 0.7 (0.9-1.6); ALBUMIN 2.5 g/dL (3.4-5.0); BILIRUBIN TOTAL 0.6 mg/dL (0.2-1.0); CALCIUM 8.1 mg/dL (8.5-10.1); CARBON DIOXIDE,CO2 24.4 mmol/L (21.0-32.0); CREATININE 1.3 mg/dL (0.8-1.3); EST CRCL DRUG DOSING (CG) 42.9 mL/min; POTASSIUM,K 3.5 mmol/L (3.5-5.1); PROTEIN TOTAL,TP 5.9 g/dL (6.4-8.2)
[2024-03-17] MEDS: Iopamidol 755 MG/ML 500 ML Multipack Bottle IVPUSH STA (10:39)
[2024-03-17] MEDS: Azithromycin 250 MG Tab PO SCH (14:21)
[2024-03-17] MEDS ORDERED: Enoxaparin 40 MG/0.4 ML Syringe SUBCUT SCH (16:00)
[2024-03-17] MEDS: LORazepam 2 MG/ML SDV IVPUSH PRN (19:13)
[2024-03-17] MEDS: Haloperidol Lactate 5 MG/ML SDV IM PRN (19:20)
[2024-03-17] MEDS: Haloperidol Lactate 5 MG/ML SDV IM ONE (22:20)
[2024-03-18 06:10] LABS: BASOPHILS ABSOLUTE AUTO 0.04 K/uL (0.00-0.20); BASOPHILS PERCENT AUTO 0.5 % (0.0-1.0); EOSINOPHILS ABSOLUTE AUTO 0.11 K/uL (0.00-0.45); EOSINOPHILS PERCENT AUTO 1.5 % (0.0-6.0); HEMATOCRIT 24.7 % (42.0-52.0); HEMOGLOBIN 8.3 g/dL (14.0-18.0); IMMATURE GRAN ABSOLUTE AUTO 0.05 K/uL (0.00-0.05); IMMATURE GRAN PERCENT AUTO 0.7 % (0.0-0.4); LYMPHOCYTES ABSOLUTE AUTO 1.06 K/uL (1.00-4.80); LYMPHOCYTES PERCENT AUTO 14.1 % (24.0-44.0); MEAN CORPUSCULAR HEMOGLOBIN 31.9 pg (28.0-32.0); MEAN CORPUSCULAR HGB CONC 33.6 g/dL (32.0-36.0); MEAN PLATELET VOLUME 9.6 fL (9.4-12.4); MONOCYTES ABSOLUTE AUTO 0.95 K/uL (0.00-0.80); MONOCYTES PERCENT AUTO 12.6 % (0.0-8.0); NEUTROPHILS ABSOLUTE AUTO 5.32 K/uL (1.80-7.70); NEUTROPHILS PERCENT AUTO 70.6 % (41.0-71.0); PLATELET COUNT,PLT 122 K/uL (150-400); WHITE BLOOD CELL COUNT,WBC 7.53 K/uL (3.9-11.3)
[2024-03-18 06:38] LABS: A/G RATIO 0.7 (0.9-1.6); ALBUMIN 2.7 g/dL (3.4-5.0); BILIRUBIN TOTAL 0.8 mg/dL (0.2-1.0); CALCIUM 8.4 mg/dL (8.5-10.1); CARBON DIOXIDE,CO2 24.6 mmol/L (21.0-32.0); CREATININE 1.3 mg/dL (0.8-1.3); EST CRCL DRUG DOSING (CG) 43.19 mL/min; POTASSIUM,K 3.2 mmol/L (3.5-5.1); PROTEIN TOTAL,TP 6.4 g/dL (6.4-8.2)
[2024-03-18] MEDS ORDERED: Potassium Chloride 20 MEQ Tab.ER PO ONE (08:31)
== END 2024-03-18 13:00 | DRG 194 ==
LOC: MW.ED 11:29 → MW.MS 15:32
PROVIDERS: ADMIT Internal Medicine; ATTEND Internal Medicine
PROC: 30233N1 Transfusion of Nonautologous Red Blood Cells into Peripheral Vein, Percutaneous Approach (ICD-10-PCS; principal; 2024-03-17)
DX: J18.9 Pneumonia, unspecified organism (principal); I44.2 Atrioventricular block, complete; M25.552 Pain in left hip; S32.10XA Unspecified fracture of sacrum, initial encounter for closed fracture; N17.9 Acute kidney failure, unspecified; Z66 Do not resuscitate; F03.90 Unspecified dementia, unspecified severity, without behavioral disturbance, psychotic disturbance, mood disturbance, and anxiety; I10 Essential (primary) hypertension; I95.9 Hypotension, unspecified; H54.7 Unspecified visual loss; E78.00 Pure hypercholesterolemia, unspecified; K21.9 Gastro-esophageal reflux disease without esophagitis; D64.9 Anemia, unspecified; Z86.73 Personal history of transient ischemic attack (TIA), and cerebral infarction without residual deficits; Z79.899 Other long term (current) drug therapy; Z79.82 Long term (current) use of aspirin; Z87.81 Personal history of (healed) traumatic fracture; Z90.89 Acquired absence of other organs; Z98.890 Other specified postprocedural states; W19.XXXA Unspecified fall, initial encounter
CPT/HCPCS: 36415; 70450; 71045; 72125; 73070; 73700; 80053; 83605; 83735; 84145; 84484; 85025; 87428; 93005; 96365; 96367; 99285; J0456; J0696; J3490; J7050; 36430; 73502-26-LT; 73502-LT; 73701-26-LT; 73701-LT; 74177; 74177-26; 81003; 85018; 86850; 86900; 86901; 86920; 93010; 97163-GP; A9270-GY; J1630; J1650; J2060; J7030; P9016; Q9967